=== PATIENT | female | born 1965 | race Caucasian/White ===

== ENCOUNTER 2019-04-18 23:11 | Emergency (ER) | payer OTHER ==
[~2019-04-18] VITALS: Ht 165.1 cm; Wt 187.8 kg
[~2019-04-18 23:11] MED LIST: ABAT250V; ALLO100 PO; AMLO5 PO; ASCO500 PO; ASPI81CH PO; ATEN25 PO; ATEN50 PO; BUME1; BUME2; BUME2 PO; COMBIPATCH TD; DOCU100 PO; FAMO20 PO; FURO40 PO; GABA300 PO; GLIP10 PO; GLIP10ER PO; HYDCHL25 PO; Hair, Skin & N1 EACH PO; INSDET100 SC; Janumet 50-5001 EACH PO; LOSA50 PO; METF500 PO; MIRALAX17 GM PO; Micro-K10 MEQ PO; Naproxen250 MG PO; Neurontin300 MG PO; OLME20 PO; OLME40 PO; ONDA4 PO; OXYACE5T PO; OXYC5; OXYC5 PO; OYSTER SHELL C1 EAC4 PO; PANT20 PO; POTCHL10ER PO; PROBIOTIC1 EAC1; RANI150; RANI150 PO; RXHYDACE PO; Robaxin-750750 MG PO; SIMV10 PO; SITA50T2 PO; SULI150 PO; VITAMIN D-32000 UNIT PO; Zocor20 MG PO
[2019-04-19 00:43] LABS: BASOPHILS ABSOLUTE AUTO 0.04 K/mm3 (0.00-0.23); BASOPHILS PERCENT AUTO 0 % (0-2); EOSINOPHILS ABSOLUTE AUTO 0.35 K/mm3 (0.00-0.68); EOSINOPHILS PERCENT AUTO 3 % (0-6); Hemoglobin 12.5 g/dL (11.5-16.0); IMMATURE GRAN ABSOLUTE AUTO 0.15 K/mm3 (0.00-0.10); IMMATURE GRAN PERCENT AUTO 1 % (0-1); LYMPHOCYTES ABSOLUTE AUTO 3.84 K/mm3 (0.84-5.20); LYMPHOCYTES PERCENT AUTO 27 % (21-46); MONOCYTES ABSOLUTE AUTO 1.03 K/mm3 (0.16-1.47); MONOCYTES PERCENT AUTO 7 % (4-13); Mean Corpuscular HGB Conc 31.3 g/dL (31.5-36.5); Mean Corpuscular Volume 86 fL (80-100); Mean Platelet Volume 11.2 fL (9.1-12.4); NEUTROPHILS ABSOLUTE AUTO 8.76 K/mm3 (1.96-9.15); NEUTROPHILS PERCENT AUTO 62 % (41-73); Platelet Count 263 K/mm3 (150-400); RDW Coefficient Variation 13.6 % (11.7-14.2); RDW Standard Deviation 42.6 fL (35.1-46.3); Red Blood Cell Count 4.63 M/mm3 (3.80-5.20); White Blood Cell Count 14.17 K/mm3 (4.00-11.30)
[2019-04-19 01:00] LABS: Calcium, Ionized (POC) 1.11 mmol/L (1.10-1.46); Chloride (POC) 99 mmol/L (98-108); Creatinine (POC) 1.2 mg/dL (0.6-1.0); Glucose (ISTAT POC) 200 mg/dL (70-99); Hemoglobin (POC) 13.3 g/dL (12.0-16.0); Potassium (POC) 3.9 mmol/L (3.5-5.5); Sodium (POC) 137 mmol/L (135-148); Total CO2 (POC) 31 mmol/L (21-32)
[2019-04-19 01:06] LABS: Albumin, Blood 3.2 g/dL (3.4-5.0); Albumin/Globulin Ratio 0.7 (0.8-1.8); Bilirubin, Total 0.2 mg/dL (0.1-1.0); Bun/Creatinine Ratio 22.7 (12.0-20.0); Calcium, Blood 9.2 mg/dL (8.5-10.1); Creatinine, Blood 1.1 mg/dL (0.40-1.00); Globulin, Blood 4.6 g/dL (2.2-4.0); Total Protein, Blood 7.8 g/dL (6.4-8.2)
== END 2019-04-19 02:30 | disposition home or self-care (01) ==
LOC: ER 23:11
PROVIDERS: Emergency Medicine
DX: R10.32 Left lower quadrant pain (principal); E11.22 Type 2 diabetes mellitus with diabetic chronic kidney disease; I12.9 Hypertensive chronic kidney disease with stage 1 through stage 4 chronic kidney disease, or unspecified chronic kidney disease; N18.9 Chronic kidney disease, unspecified; E66.01 Morbid (severe) obesity due to excess calories; Z88.8 Allergy status to other drugs, medicaments and biological substances; Z79.899 Other long term (current) drug therapy; Z79.82 Long term (current) use of aspirin; Z79.4 Long term (current) use of insulin
CPT/HCPCS: 36415; 74176; 76857; 80047; 80053; 83690; 85014; 85025; 96361; 96374; 96375; 96376; 99284; J1170; J2405; J7030

== ENCOUNTER 2019-10-21 22:36 | Emergency (ER) | payer OTHER ==
[~2019-10-21] VITALS: Ht 162.6 cm; Wt 187.3 kg
[2019-10-22] MEDS ORDERED: BASAGLAR K100 UNIT/3 SC (00:17)
[2019-10-22] MEDS ORDERED: NOVOLOG100 UNIT/2 SC (00:17)
[2019-10-22] MEDS ORDERED: Loratadine10 MG PO (00:18)
[2019-10-22] MEDS ORDERED: PANT20 (00:18)
[2019-10-22] MEDS ORDERED: BUME2 (00:20)
[2019-10-22] MEDS ORDERED: Protonix40 MG PO (01:53)
== END 2019-10-22 02:15 | disposition home or self-care (01) ==
LOC: ER 22:36
DX: K21.9 Gastro-esophageal reflux disease without esophagitis (principal); J39.2 Other diseases of pharynx; Z88.8 Allergy status to other drugs, medicaments and biological substances; Z79.84 Long term (current) use of oral hypoglycemic drugs; Z79.82 Long term (current) use of aspirin; Z79.899 Other long term (current) drug therapy; E11.9 Type 2 diabetes mellitus without complications; I10 Essential (primary) hypertension; N17.9 Acute kidney failure, unspecified
CPT/HCPCS: 99283

== ENCOUNTER 2020-05-12 20:07 | Inpatient (IN) | payer OTHER ==
[~2020-05-12] VITALS: Ht 162.6 cm; Wt 195.0 kg
[~2020-05-12 20:07] MED LIST changes: +ALUMINUM H320 MG/5 M PO; +Allergy Relief10 M1 PO; +BASAGLAR K100 UNIT/3 SC; +BASAGLAR K100 UNIT/4 SC; +Biotin800 MCG PO; +CALC.25 PO; +CENTRUM SILVER1 EAC2 PO; +CIME400 PO; +COMBIPATCH 0.01 EAC1 TD; +COMBIPATCH TOP; +ERGO400 PO; +FISH OIL 1,001000 M1 PO; +FISH OIL 1,2001 EAC1 PO; +Loratadine10 MG PO; +MERIBIN5 MG PO; +NOVOLOG100 UNIT/2 SC; +NOVOLOG100 UNIT/3 SC; +OMEP20ER; +OMEP20ER PO; +PANT20; +POTA10T PO; +Protonix40 MG PO; +TUMS500 MG PO; +Vitamin C100 M1 PO; +ZOCOR20 MG PO
[2020-05-12 21:19] LABS: BASOPHILS ABSOLUTE AUTO 0.04 K/mm3 (0.00-0.23); BASOPHILS PERCENT AUTO 0 % (0-2); EOSINOPHILS ABSOLUTE AUTO 0.02 K/mm3 (0.00-0.68); EOSINOPHILS PERCENT AUTO 0 % (0-6); Hematocrit 42.1 % (33.0-51.0); Hemoglobin 13.1 g/dL (11.5-16.0); IMMATURE GRAN ABSOLUTE AUTO 0.29 K/mm3 (0.00-0.10); IMMATURE GRAN PERCENT AUTO 3 % (0-1); LYMPHOCYTES ABSOLUTE AUTO 1.74 K/mm3 (0.84-5.20); LYMPHOCYTES PERCENT AUTO 18 % (21-46); MONOCYTES ABSOLUTE AUTO 0.87 K/mm3 (0.16-1.47); MONOCYTES PERCENT AUTO 9 % (4-13); Mean Corpuscular HGB 25.4 pg (26.0-34.0); Mean Corpuscular HGB Conc 31.1 g/dL (31.5-36.5); Mean Corpuscular Volume 82 fL (80-100); Mean Platelet Volume 11.2 fL (9.1-12.4); NEUTROPHILS PERCENT AUTO 69 % (41-73); Platelet Count 224 K/mm3 (150-400); RDW Coefficient Variation 14.6 % (11.7-14.2); RDW Standard Deviation 43.7 fL (35.1-46.3); Red Blood Cell Count 5.15 M/mm3 (3.80-5.20); White Blood Cell Count 9.46 K/mm3 (4.00-11.30)
[2020-05-12 21:35] LABS: International Normalized Ratio 1.11; Prothrombin Time Results 11.8 Sec (9.7-11.5)
[2020-05-12 21:36] LABS: Source, Urine Catheter
[2020-05-12 21:38] LABS: Bilirubin, Urine Neg (Neg); Blood, Urine 4+ (Neg); Glucose Qualitative, Urine Neg (Neg); Ketones, Urine 2+ (Neg); Leukocyte Esterase, Urine 1+ (Neg); Nitrite, Urine Neg (Neg); Protein, Urine 3+ (Neg); Specific Gravity, Urine 1.025 (1.003-1.022); Urobilinogen, Urine 1+ (Normal)
[2020-05-12 21:40] LABS: Albumin, Blood 2.6 g/dL (3.4-5.0); Albumin/Globulin Ratio 0.5 (0.8-1.8); Bilirubin, Total 0.6 mg/dL (0.1-1.0); Bun/Creatinine Ratio 12.5 (12.0-20.0); Calcium, Blood 8.9 mg/dL (8.5-10.1); Creatinine, Blood 1.84 mg/dL (0.40-1.00); Globulin, Blood 4.8 g/dL (2.2-4.0); Potassium, Blood 4.4 mmol/L (3.5-5.5); Total Protein, Blood 7.4 g/dL (6.4-8.2)
[2020-05-12 21:44] LABS: Appearance, Urine Hazy (Clear); Color, Urine Yellow (P-Yellow)
[2020-05-12 21:45] LABS: Amorphous Mod (0-Heavy); Bacteria Few /hpf; Hyaline Casts 0-2 /lpf (0-2); Squamous Epithelial Cells Few /hpf (Few); White Blood Cells, Urine 0-2 /hpf (0-5)
[2020-05-12] MEDS ORDERED: CODEINE-GUAIFE120 M1 (21:45)
[2020-05-12] MEDS ORDERED: ESTRADIOL-NORE1 EAC2 PO (21:46)
[2020-05-12 22:00] LABS: Influenza A, PCR Negative (NEGATIVE); Influenza B, PCR Negative (NEGATIVE); Resp Syncytial Virus, PCR Negative (NEGATIVE); SARS-Cov-2 (COVID-19) PCR, MMC Positive (NEGATIVE)
[2020-05-13] MEDS ORDERED: BUME2 PO (02:44)
[2020-05-13] MEDS ORDERED: LOSA50 PO (02:53)
[2020-05-13] MEDS ORDERED: CIME400 PO (02:57)
[2020-05-13 05:27] LABS: Hematocrit 38.7 % (33.0-51.0); Hemoglobin 12.1 g/dL (11.5-16.0); Mean Corpuscular HGB 25.6 pg (26.0-34.0); Mean Corpuscular HGB Conc 31.3 g/dL (31.5-36.5); Mean Corpuscular Volume 82 fL (80-100); Mean Platelet Volume 11.2 fL (9.1-12.4); Platelet Count 192 K/mm3 (150-400); RDW Coefficient Variation 14.4 % (11.7-14.2); RDW Standard Deviation 43.3 fL (35.1-46.3); Red Blood Cell Count 4.72 M/mm3 (3.80-5.20); White Blood Cell Count 8.05 K/mm3 (4.00-11.30)
[2020-05-13 05:43] LABS: Bun/Creatinine Ratio 14.5 (12.0-20.0); Calcium, Blood 8.3 mg/dL (8.5-10.1); Creatinine, Blood 1.79 mg/dL (0.40-1.00); Potassium, Blood 4.6 mmol/L (3.5-5.5)
[2020-05-14 04:57] LABS: Hematocrit 37.9 % (33.0-51.0); Hemoglobin 11.9 g/dL (11.5-16.0); Mean Corpuscular HGB 25.3 pg (26.0-34.0); Mean Corpuscular HGB Conc 31.4 g/dL (31.5-36.5); Mean Corpuscular Volume 81 fL (80-100); Mean Platelet Volume 10.9 fL (9.1-12.4); Platelet Count 225 K/mm3 (150-400); RDW Standard Deviation 41.5 fL (35.1-46.3); White Blood Cell Count 10.19 K/mm3 (4.00-11.30)
[2020-05-14 05:17] LABS: Bun/Creatinine Ratio 25.5 (12.0-20.0); Calcium, Blood 8.7 mg/dL (8.5-10.1); Creatinine, Blood 1.53 mg/dL (0.40-1.00); Potassium, Blood 4.4 mmol/L (3.5-5.5)
[2020-05-14 05:46] LABS: BAND PERCENT MAN 2 % (0-8); BASOPHILS PERCENT MAN 0 % (0-2); EOSINOPHILS PERCENT MAN 1 % (0-6); LYMPHOCYTES ABSOLUTE MAN 1.83 K/mm3 (0.84-5.20); MONOCYTES PERCENT MAN 2 % (4-13); MYELOCYTE PERCENT MAN 1 % (0-0); NEUTROPHILS ABSOLUTE MAN 7.94 K/mm3 (1.96-9.15); SEG NEUTROPHILS PERCENT MAN 76 % (41-73); TOTAL CELLS COUNTED 100
[2020-05-14 05:49] LABS: LYMPHOCYTES PERCENT MAN 18 % (21-46)
[2020-05-15 04:54] LABS: Hematocrit 41.4 % (33.0-51.0); Hemoglobin 13.1 g/dL (11.5-16.0); Mean Corpuscular HGB 25.4 pg (26.0-34.0); Mean Corpuscular HGB Conc 31.6 g/dL (31.5-36.5); Mean Corpuscular Volume 80 fL (80-100); Mean Platelet Volume 10.9 fL (9.1-12.4); Platelet Count 241 K/mm3 (150-400); RDW Coefficient Variation 13.6 % (11.7-14.2); RDW Standard Deviation 39.8 fL (35.1-46.3); Red Blood Cell Count 5.16 M/mm3 (3.80-5.20); White Blood Cell Count 12.92 K/mm3 (4.00-11.30)
[2020-05-15 05:15] LABS: Bun/Creatinine Ratio 32.9 (12.0-20.0); Calcium, Blood 8.3 mg/dL (8.5-10.1); Creatinine, Blood 1.52 mg/dL (0.40-1.00); Potassium, Blood 4.4 mmol/L (3.5-5.5)
[2020-05-15 05:30] LABS: BAND PERCENT MAN 1 % (0-8); BASOPHILS PERCENT MAN 0 % (0-2); EOSINOPHILS PERCENT MAN 0 % (0-6); LYMPHOCYTES PERCENT MAN 14 % (21-46); MONOCYTES PERCENT MAN 7 % (4-13); MYELOCYTE ABSOLUTE MAN 0.12 K/mm3 (0.00-0.00); MYELOCYTE PERCENT MAN 1 % (0-0); NEUTROPHILS ABSOLUTE MAN 10.07 K/mm3 (1.96-9.15); SEG NEUTROPHILS PERCENT MAN 77 % (41-73); TOTAL CELLS COUNTED 100
[2020-05-17 07:04] LABS: Bun/Creatinine Ratio 36.1 (12.0-20.0); Calcium, Blood 8.8 mg/dL (8.5-10.1); Creatinine, Blood 1.33 mg/dL (0.40-1.00); Potassium, Blood 4.3 mmol/L (3.5-5.5)
[2020-05-18] MEDS ORDERED: GUAI600T33 PO (11:40)
[2020-05-18] MEDS ORDERED: DECADRON6 M1 PO (11:40)
[2020-05-18] MEDS ORDERED: ANTIFUNGAL POWD71 GM TOP (11:41)
== END 2020-05-18 14:50 | disposition home or self-care (01) | DRG 177 ==
LOC: ER 20:07 → MEDS 23:37 → ER 05-13 02:06 → MEDS 05-13 02:20
PROVIDERS: Internal Medicine; Physician Assistant; ADMIT Internal Medicine
PROC: XW033E5 Introduction of Remdesivir Anti-infective into Peripheral Vein, Percutaneous Approach, New Technology Group 5 (ICD-10-PCS; principal; 2020-05-13)
PROC: 3E0333Z Introduction of Anti-inflammatory into Peripheral Vein, Percutaneous Approach (ICD-10-PCS; 2020-05-13)
DX: U07.1 COVID-19 (principal); J96.01 Acute respiratory failure with hypoxia; J12.82 Pneumonia due to coronavirus disease 2019; N17.9 Acute kidney failure, unspecified; Z68.45 Body mass index [BMI] 70 or greater, adult; E11.65 Type 2 diabetes mellitus with hyperglycemia; E66.01 Morbid (severe) obesity due to excess calories; E78.5 Hyperlipidemia, unspecified; I12.9 Hypertensive chronic kidney disease with stage 1 through stage 4 chronic kidney disease, or unspecified chronic kidney disease; E11.22 Type 2 diabetes mellitus with diabetic chronic kidney disease; N18.30 Chronic kidney disease, stage 3 unspecified
CPT/HCPCS: 0241U; 36415; 71045; 80048; 80053; 81001; 82947; 83605; 84145; 85025; 85027; 85610; 85730; 87040; 87086; 93005; 93010; 96365; 96375; 99285-25; A9270; A9270-GY; J1100; J7120

== ENCOUNTER 2020-08-01 14:00 | Inpatient (IN) | payer OTHER ==
[~2020-08-01] VITALS: Ht 162.6 cm; Wt 194.6 kg
[~2020-08-01 14:00] MED LIST changes: +ANTIFUNGAL POWD71 GM TOP; -Allergy Relief10 M1 PO; -BASAGLAR K100 UNIT/4 SC; +CODEINE-GUAIFE120 M1; +DECADRON6 M1 PO; -ERGO400 PO; +GUAI600T33 PO; -NOVOLOG100 UNIT/3 SC; -OMEP20ER PO; -ZOCOR20 MG PO
[2020-08-01 16:25] LABS: BASOPHILS ABSOLUTE AUTO 0.07 K/mm3 (0.00-0.23); BASOPHILS PERCENT AUTO 1 % (0-2); EOSINOPHILS ABSOLUTE AUTO 0.38 K/mm3 (0.00-0.68); EOSINOPHILS PERCENT AUTO 3 % (0-6); Hematocrit 39.4 % (33.0-51.0); Hemoglobin 12.5 g/dL (11.5-16.0); IMMATURE GRAN ABSOLUTE AUTO 0.42 K/mm3 (0.00-0.10); IMMATURE GRAN PERCENT AUTO 4 % (0-1); LYMPHOCYTES ABSOLUTE AUTO 3.01 K/mm3 (0.84-5.20); LYMPHOCYTES PERCENT AUTO 26 % (21-46); MONOCYTES ABSOLUTE AUTO 0.84 K/mm3 (0.16-1.47); MONOCYTES PERCENT AUTO 7 % (4-13); Mean Corpuscular HGB 26.7 pg (26.0-34.0); Mean Corpuscular HGB Conc 31.7 g/dL (31.5-36.5); Mean Corpuscular Volume 84 fL (80-100); Mean Platelet Volume 10.5 fL (9.1-12.4); NEUTROPHILS ABSOLUTE AUTO 6.68 K/mm3 (1.96-9.15); NEUTROPHILS PERCENT AUTO 59 % (41-73); Platelet Count 306 K/mm3 (150-400); RDW Coefficient Variation 15.4 % (11.7-14.2); RDW Standard Deviation 46.5 fL (35.1-46.3); Red Blood Cell Count 4.69 M/mm3 (3.80-5.20)
[2020-08-01 16:43] LABS: Albumin, Blood 3.1 g/dL (3.4-5.0); Albumin/Globulin Ratio 0.6 (0.8-1.8); Bilirubin, Total 0.3 mg/dL (0.1-1.0); Bun/Creatinine Ratio 20.3 (12.0-20.0); Calcium, Blood 9.4 mg/dL (8.5-10.1); Creatinine, Blood 1.53 mg/dL (0.40-1.00); Globulin, Blood 4.9 g/dL (2.2-4.0); Potassium, Blood 4.3 mmol/L (3.5-5.5)
[2020-08-01] MEDS ORDERED: CIME400 PO (17:58)
[2020-08-01] MEDS ORDERED: SULFAMETHOXAZO1 EAC1 PO (17:58)
[2020-08-01] MEDS ORDERED: OMEP20ER PO (17:59)
[2020-08-01] MEDS ORDERED: BASAGLAR K100 UNIT/8 SC (18:00)
[2020-08-01] MEDS ORDERED: ESTRADIOL-NORE1 EAC2 PO (18:00)
[2020-08-01] MEDS ORDERED: CALC.25 PO (18:00)
[2020-08-01] MEDS ORDERED: POTA10T PO (18:01)
[2020-08-01] MEDS ORDERED: LOSA50 PO (18:01)
[2020-08-01] MEDS ORDERED: BUME2 PO (18:02)
[2020-08-01] MEDS ORDERED: NOVOLOG100 UNIT/3 SC (18:02)
[2020-08-01] MEDS ORDERED: ALLO100 PO (18:02)
[2020-08-01] MEDS ORDERED: ZOCOR20 MG PO (18:03)
[2020-08-01] MEDS ORDERED: METF500C PO (18:03)
[2020-08-01] MEDS ORDERED: Allergy Relief10 M1 PO (18:20)
[2020-08-01] MEDS ORDERED: Vitamin D2000 UNIT PO (18:20)
[2020-08-01] MEDS ORDERED: Aspir 8181 MG PO (18:20)
[2020-08-01] MEDS ORDERED: FLUC150A PO (18:21)
[2020-08-01] MEDS ORDERED: BUME1 PO (18:23)
[2020-08-01 18:37] LABS: Source, Urine Clean Catch
[2020-08-01 18:40] LABS: Appearance, Urine Clear (Clear); Bilirubin, Urine Neg (Neg); Blood, Urine Neg (Neg); Color, Urine Yellow (P-Yellow); Glucose Qualitative, Urine Neg (Neg); Ketones, Urine Neg (Neg); Leukocyte Esterase, Urine Neg (Neg); Nitrite, Urine Neg (Neg); Protein, Urine 2+ (Neg); Urobilinogen, Urine NORM (Normal)
[2020-08-01 18:59] LABS: Squamous Epithelial Cells Mod /hpf (Few)
[2020-08-01 19:00] LABS: Amorphous Mod (0-Heavy); Bacteria Few /hpf; Mucus Light (0-Heavy); Red Blood Cells, Urine 0-2 /hpf (0-2); White Blood Cells, Urine 0-2 /hpf (0-5)
--- NOTE | 2020-08-01 22:03 | NUR ---
YVROSE WAS ADMITTED TO THE FLOOR FOR CELLULTITIS OF THE LEFT LOWER EXTREMITY. ARRIVED TO THE ROOM VIA GURNEY, TRANSFERRED INDEPENDENTLY TO BED. AOX3, PLEASANT AND COOPERATIVE. AT BEDSIDE. REPORTS PAIN AT 6/10 IN LLE. LLE WITH OUTLINED REDNESS BRIGHT RED, SLIGHTLY WARM TO THE TOUCH. FROM KNEE DOWN TO FEET, LEG IS SWOLLEN, DECREASED PULSE ON THE LEFT SIDE DUE TO EDEMA. LLE NO EDEMA. STATES WAS TAKING HOME ANTIBOTICS BUT WAS NOT WORKING. LUNG SOUNDS HR SINUS. DENIES ANY URINARY OR BOWEL ISSUES. PICTURES IN CHART. IVF INFUSING, STARTED VANCO. MEDICATED FOR PAIN AND ADMINISTERED PM MEDS. CALL LIGHT IS IN REACH, WILL CONTINUE TO MONITOR.
[2020-08-02 05:18] LABS: BASOPHILS ABSOLUTE AUTO 0.06 K/mm3 (0.00-0.23); BASOPHILS PERCENT AUTO 1 % (0-2); EOSINOPHILS ABSOLUTE AUTO 0.43 K/mm3 (0.00-0.68); EOSINOPHILS PERCENT AUTO 4 % (0-6); Hematocrit 36.5 % (33.0-51.0); Hemoglobin 11.4 g/dL (11.5-16.0); IMMATURE GRAN ABSOLUTE AUTO 0.36 K/mm3 (0.00-0.10); IMMATURE GRAN PERCENT AUTO 3 % (0-1); LYMPHOCYTES ABSOLUTE AUTO 3.52 K/mm3 (0.84-5.20); LYMPHOCYTES PERCENT AUTO 33 % (21-46); MONOCYTES ABSOLUTE AUTO 0.71 K/mm3 (0.16-1.47); MONOCYTES PERCENT AUTO 7 % (4-13); Mean Corpuscular HGB 26.8 pg (26.0-34.0); Mean Corpuscular HGB Conc 31.2 g/dL (31.5-36.5); Mean Corpuscular Volume 86 fL (80-100); Mean Platelet Volume 10.6 fL (9.1-12.4); NEUTROPHILS ABSOLUTE AUTO 5.67 K/mm3 (1.96-9.15); NEUTROPHILS PERCENT AUTO 53 % (41-73); Platelet Count 299 K/mm3 (150-400); RDW Coefficient Variation 15.4 % (11.7-14.2); RDW Standard Deviation 48.1 fL (35.1-46.3); Red Blood Cell Count 4.26 M/mm3 (3.80-5.20); White Blood Cell Count 10.75 K/mm3 (4.00-11.30)
--- NOTE | 2020-08-02 05:28 | NUR ---
SHIFT SUMMARY: AOX3, INDEPENDENT TO 1 ASSIST IN ROOM. HAS STAYED WITH HER ALL NIGHT AND HAS ASSISTED. LLE HAS OUTLINED REDNESS FROM JUST BELOW THE KNEE TO THE FOOT, 3+ SWELLING, SLIGHTLY WARM TO THE TOUCH. REDNESS HAS DECREASED FROM POINT OF ER TO THIS AM NOTED BY OUTLINE. MEDICATED FOR PAIN X1 PRIOR TO BEDTIME. 1.8 LITERS GIVEN PER ORDERS. IV SL. GOOD APPETITE, CLEAR LUNGS, HR SINUS. ENCOURAGED ELEVATION OF LEG. PLAN: IV ANTIBOTICS, SYMPTOMS MANAGMENT. CALLS APPROPRIATLY, CALL LIGHT IN REACH.
[2020-08-02 05:41] LABS: Bun/Creatinine Ratio 22.3 (12.0-20.0); Calcium, Blood 8.7 mg/dL (8.5-10.1); Creatinine, Blood 1.48 mg/dL (0.40-1.00); Potassium, Blood 4.6 mmol/L (3.5-5.5)
--- NOTE | 2020-08-02 08:00 | NUR ---
PT LAYING IN BED WATCHING TV, A/0X3, PLEASANT AND COOPERATIVE WITH CARE, FOLLOWS COMMANDS WELL, DENIES COMPLAINTS OF PAIN, LUNGS ARE CLEAR T/O, RESP EVEN AND UNLABORED ON R/A, NO COUGH NOTED, HRR, IV SITE TO RIGHT UPPER ARM, SITE CLEAR AND PATENT, BTX4, ABD FLAT SOFT NONTENDER, VOIDS WITHOUT DIFF, SKIN HAS CELLULITIS TO LEFT LOWER EXT, IS MARKED AND REDNESS IS SHRINKING, EDEMA NOTED TO THIS EXT, SHE REPORTS THE PAIN IS OK WHEN IN BED BUT WHEN SHE PUTS WEIGHT ON IT IT HURTS MORE, EDI GALLAGHER, CALL LIGHT IN REACH.
--- NOTE | 2020-08-02 12:14 | NUR ---
IV INFILTRATED, CHARGE NURSE FROM PCU PLACED A LONG IV WITH U/S GUIDED, FLUSHES WELL. CALL LIGHT IN REACH.
--- NOTE | 2020-08-02 17:21 | NUR ---
BP 198/116 HR 101 PATIENT [address]IVE[address] BASS NOTIFIED AND ORDERS RECEIVED FOR METOPROLOL TARTRATE AND APRESOLINE. EMAR UPDATED
--- NOTE | 2020-08-02 18:40 | NUR ---
Shift Summary Assumed care at approx. 1245. A/O, independent. Flu shot given. Calls appropriately for needs. at bedside during visiting hours. Patient had hypertension. PRN meds ordered. Also notified Dr. Garcia of home med Losartan not on EMAR. Received T.O. to resume home med Losartan starting tomorrow. No other concerns, WCTM and report to oncoming RN.
--- NOTE | 2020-08-03 04:15 | NUR ---
SHIFT SUMMARY A/O, ABLE TO MAKE NEEDS KNOWN. COOPERATIVE WITH CARE. CALLS AND ANSWERS QUESTIONS APPROPRIATELY. NO C/O PAIN/DISCOMFORT. DECIDED BY NURSING ORANGE PICKER OK FOR TO STAY THE NIGHT FOR CAREGIVING PURPOSES. CONTINUES WITH IV ABX. RA TO LLE APPEARS TO BE RECEEDING. APPEARED TO REST T/O THE NIGHT. NOTED HYPERTENSION, BUT APPEARS ON TREND WITH PREVIOUS PRESSURES. NO OTHER ACUTE CHANGES NOTED OVERNIGHT. BED REMAINS IN LOWEST POSITION. CALL LIGHT AND BELONGINGS WITHIN REACH. CONTINUE WITH CURRENT PLAN OF CARE. REPORT TO ONCOMING RN.
[2020-08-03] MEDS ORDERED: VISBIOME 112.51 EACH PO (11:28)
[2020-08-03] MEDS ORDERED: Diflucan150 MG PO ×2 (11:29→12:58)
[2020-08-03] MEDS ORDERED: CEPH500 PO (11:29)
--- NOTE | 2020-08-03 13:29 | NUR ---
DISCHARGE SUMMARY PT WHEELED DOWN TO FREEDOM ENTRANCE BY SECURITY @ 2309. IS WAITING FOR PT WITH THEIR PERSONAL CAR. WAS AT BEDSIDE WHEN DISCHARGE INSTRUCTIONS WERE REVIEWED. ALL THEIR QUESTIONS WERE ANSWERED. IV WAS REMOVED, SITE APPEARED WNL. PT STATED SHE HAD ALL OF HER BELONGINGS. NEEDED RX FAXED TO PHARMACY OF PT CHOICE. PT INSTRUCTED TO CALL FOR FOLLOW UP APPOINTMENTS.
[2020-11-24] MEDS ORDERED: Norco 5-325 Ta1 EACH PO (12:06)
== END 2020-08-03 13:28 | disposition home or self-care (01) | DRG 872 ==
LOC: ER 14:00 → ERHOLD 18:14 → MEDS 19:55
PROVIDERS: Nurse Practitioner Acute Care; Physician Assistant; ADMIT Hospitalist
DX: A41.9 Sepsis, unspecified organism (principal); L03.116 Cellulitis of left lower limb; N17.9 Acute kidney failure, unspecified; Z68.45 Body mass index [BMI] 70 or greater, adult; E78.5 Hyperlipidemia, unspecified; E66.01 Morbid (severe) obesity due to excess calories; I12.9 Hypertensive chronic kidney disease with stage 1 through stage 4 chronic kidney disease, or unspecified chronic kidney disease; N18.30 Chronic kidney disease, stage 3 unspecified; E11.22 Type 2 diabetes mellitus with diabetic chronic kidney disease; G47.33 Obstructive sleep apnea (adult) (pediatric); Z23 Encounter for immunization; Z88.6 Allergy status to analgesic agent; Z88.8 Allergy status to other drugs, medicaments and biological substances; Z79.4 Long term (current) use of insulin; Z79.82 Long term (current) use of aspirin; Z79.899 Other long term (current) drug therapy
CPT/HCPCS: 36415; 80048; 80053; 81001; 82947; 83605; 85025; 87040; 87086; 93005; 93010; 93971; 96374; 99285-25; A9270; J0692; J1644; J3370; J7030; J7050; Q2038

== ENCOUNTER 2021-03-06 14:43 | Emergency (ER) | payer OTHER ==
[~2021-03-06] VITALS: Ht 162.6 cm; Wt 189.2 kg
[~2021-03-06 14:43] MED LIST changes: +Allergy Relief10 M1 PO; +Aspir 8181 MG PO; +BASAGLAR K100 UNIT/8 SC; +BUME1 PO; +CEPH500 PO; +Diflucan150 MG PO; +ESTRADIOL-NORE1 EAC2 PO; +FLUC150A PO; +METF500C PO; +NOVOLOG100 UNIT/3 SC; +Norco 5-325 Ta1 EACH PO; +OMEP20ER PO; +SULFAMETHOXAZO1 EAC1 PO; +VISBIOME 112.51 EACH PO; +Vitamin D2000 UNIT PO; +ZOCOR20 MG PO
[2021-03-06] MEDS ORDERED: INSULANPEN SC (15:28)
[2021-03-06] MEDS ORDERED: FAMO20 PO (15:35)
[2021-03-06] MEDS ORDERED: MERIBIN5 MG PO (15:41)
[2021-03-06] MEDS ORDERED: MULVITA PO (15:42)
[2021-03-06] MEDS ORDERED: Calcium + Vita1 EACH PO (15:44)
[2021-03-06] MEDS ORDERED: FISH OIL-VIT D1 EACH PO (15:46)
[2021-03-06] MEDS ORDERED: FISH OIL PO (15:48)
[2021-03-06] MEDS ORDERED: Tessalon200 MG (15:52)
[2021-03-06] MEDS ORDERED: METO5 (15:53)
[2021-03-06] MEDS ORDERED: BUME2 PO (16:08)
[2021-03-06 16:47] LABS: BASOPHILS PERCENT AUTO 1 % (0-2); EOSINOPHILS ABSOLUTE AUTO 0.36 K/mm3 (0.00-0.68); EOSINOPHILS PERCENT AUTO 2 % (0-6); Hematocrit 39.5 % (33.0-51.0); Hemoglobin 12.8 g/dL (11.5-16.0); IMMATURE GRAN ABSOLUTE AUTO 0.56 K/mm3 (0.00-0.10); IMMATURE GRAN PERCENT AUTO 4 % (0-1); LYMPHOCYTES ABSOLUTE AUTO 3.63 K/mm3 (0.84-5.20); LYMPHOCYTES PERCENT AUTO 24 % (21-46); MONOCYTES PERCENT AUTO 7 % (4-13); Mean Corpuscular HGB 26.9 pg (26.0-34.0); Mean Corpuscular HGB Conc 32.4 g/dL (31.5-36.5); Mean Corpuscular Volume 83 fL (80-100); Mean Platelet Volume 11.6 fL (9.1-12.4); NEUTROPHILS ABSOLUTE AUTO 9.49 K/mm3 (1.96-9.15); NEUTROPHILS PERCENT AUTO 62 % (41-73); Platelet Count 287 K/mm3 (150-400); RDW Coefficient Variation 14.9 % (11.7-14.2); RDW Standard Deviation 44.8 fL (35.1-46.3); Red Blood Cell Count 4.76 M/mm3 (3.80-5.20); White Blood Cell Count 15.24 K/mm3 (4.00-11.30)
[2021-03-06 17:07] LABS: Alanine Aminotransfer (ALT/SGP 39 U/L (12-78); Albumin/Globulin Ratio 0.7 (0.8-1.8); Alk Phos 82 U/L (50-136); Anion Gap 7 mmol/L (6-16); Aspartate Aminotrans (AST/SGOT 24 U/L (12-37); Bilirubin, Total 0.3 mg/dL (0.1-1.0); Blood Urea Nitrogen 67 mg/dL (8-24); Bun/Creatinine Ratio 31.6 (12.0-20.0); CO2, Blood 32 mmol/L (21-32); Calcium, Blood 9.8 mg/dL (8.5-10.1); Chloride, Blood 97 mmol/L (98-108); Creatinine, Blood 2.12 mg/dL (0.40-1.00); Globulin, Blood 4.4 g/dL (2.2-4.0); Glomerular Filtration Rate 24 (60-); Glucose, Blood 179 mg/dL (70-99); Potassium, Blood 2.9 mmol/L (3.5-5.5); Sodium, Blood 136 mmol/L (136-145); Total Protein, Blood 7.4 g/dL (6.4-8.2); Troponin I <0.015 ng/mL (0.000-0.040)
[2021-03-06] MEDS ORDERED: Norco 5-325 Ta1 EACH PO (18:22)
[2021-03-06] MEDS ORDERED: AZIT250 PO (18:22)
== END 2021-03-06 18:51 | disposition home or self-care (01) ==
LOC: ER 14:43
PROVIDERS: Physician Assistant
DX: J18.9 Pneumonia, unspecified organism (principal); M72.2 Plantar fascial fibromatosis; E11.9 Type 2 diabetes mellitus without complications; I10 Essential (primary) hypertension; E78.5 Hyperlipidemia, unspecified; K21.9 Gastro-esophageal reflux disease without esophagitis; G47.33 Obstructive sleep apnea (adult) (pediatric); Z88.8 Allergy status to other drugs, medicaments and biological substances; Z79.4 Long term (current) use of insulin; Z79.899 Other long term (current) drug therapy; Z79.84 Long term (current) use of oral hypoglycemic drugs; Z79.82 Long term (current) use of aspirin
CPT/HCPCS: 36415; 71046; 73700; 80053; 83690; 83880; 84484; 85025; 93005; 93010; 99285-25

== ENCOUNTER 2021-03-14 05:14 | Emergency (ER) | payer OTHER ==
[~2021-03-14] VITALS: Ht 162.6 cm; Wt 189.2 kg
[~2021-03-14 05:14] MED LIST changes: +AZIT250 PO; +Calcium + Vita1 EACH PO; +FISH OIL PO; +FISH OIL-VIT D1 EACH PO; +INSULANPEN SC; +METO5; +MULVITA PO; +Tessalon200 MG
[2021-03-14 07:19] LABS: BASOPHILS ABSOLUTE AUTO 0.07 K/mm3 (0.00-0.23); BASOPHILS PERCENT AUTO 1 % (0-2); EOSINOPHILS ABSOLUTE AUTO 0.58 K/mm3 (0.00-0.68); EOSINOPHILS PERCENT AUTO 4 % (0-6); Hematocrit 37.8 % (33.0-51.0); Hemoglobin 11.9 g/dL (11.5-16.0); IMMATURE GRAN ABSOLUTE AUTO 0.29 K/mm3 (0.00-0.10); IMMATURE GRAN PERCENT AUTO 2 % (0-1); LYMPHOCYTES ABSOLUTE AUTO 3.75 K/mm3 (0.84-5.20); LYMPHOCYTES PERCENT AUTO 26 % (21-46); MONOCYTES ABSOLUTE AUTO 1.03 K/mm3 (0.16-1.47); MONOCYTES PERCENT AUTO 7 % (4-13); Mean Corpuscular HGB 26.7 pg (26.0-34.0); Mean Corpuscular HGB Conc 31.5 g/dL (31.5-36.5); Mean Corpuscular Volume 85 fL (80-100); Mean Platelet Volume 11.4 fL (9.1-12.4); NEUTROPHILS ABSOLUTE AUTO 8.71 K/mm3 (1.96-9.15); NEUTROPHILS PERCENT AUTO 60 % (41-73); Platelet Count 224 K/mm3 (150-400); RDW Coefficient Variation 15.5 % (11.7-14.2); RDW Standard Deviation 47.6 fL (35.1-46.3); Red Blood Cell Count 4.45 M/mm3 (3.80-5.20); White Blood Cell Count 14.43 K/mm3 (4.00-11.30)
[2021-03-14 07:37] LABS: Alanine Aminotransfer (ALT/SGP 39 U/L (12-78); Albumin, Blood 2.9 g/dL (3.4-5.0); Albumin/Globulin Ratio 0.7 (0.8-1.8); Alk Phos 72 U/L (50-136); Anion Gap 4 mmol/L (6-16); Aspartate Aminotrans (AST/SGOT 17 U/L (12-37); Bilirubin, Total 0.4 mg/dL (0.1-1.0); Blood Urea Nitrogen 31 mg/dL (8-24); Bun/Creatinine Ratio 18.6 (12.0-20.0); CO2, Blood 30 mmol/L (21-32); Calcium, Blood 8.9 mg/dL (8.5-10.1); Chloride, Blood 103 mmol/L (98-108); Creatinine, Blood 1.67 mg/dL (0.40-1.00); Globulin, Blood 4.3 g/dL (2.2-4.0); Glomerular Filtration Rate 32 (60-); Glucose, Blood 179 mg/dL (70-99); Sodium, Blood 137 mmol/L (136-145); Total Protein, Blood 7.2 g/dL (6.4-8.2); Troponin I <0.015 ng/mL (0.000-0.040)
[2021-03-14] MEDS ORDERED: CLIN300 PO (08:21)
== END 2021-03-14 09:25 | disposition home or self-care (01) ==
LOC: ER 05:14
PROVIDERS: Student in an Organized Health Care Education/Training Program
DX: L03.115 Cellulitis of right lower limb (principal); R60.0 Localized edema; E11.9 Type 2 diabetes mellitus without complications; I10 Essential (primary) hypertension; E78.5 Hyperlipidemia, unspecified; N17.9 Acute kidney failure, unspecified; K21.9 Gastro-esophageal reflux disease without esophagitis; G47.33 Obstructive sleep apnea (adult) (pediatric); Z88.8 Allergy status to other drugs, medicaments and biological substances; Z79.899 Other long term (current) drug therapy; Z79.4 Long term (current) use of insulin; Z79.82 Long term (current) use of aspirin
CPT/HCPCS: 71046; 80053; 83880; 84484; 85025; 93005; 93010; 96374; 99284-25; J1940

== ENCOUNTER 2021-04-23 11:07 | Emergency (ER) | payer OTHER ==
[~2021-04-23] VITALS: Ht 162.6 cm; Wt 187.3 kg
[~2021-04-23 11:07] MED LIST changes: +CLIN300 PO
[2021-04-23 11:56] LABS: BASOPHILS ABSOLUTE AUTO 0.09 K/mm3 (0.00-0.23); BASOPHILS PERCENT AUTO 1 % (0-2); EOSINOPHILS ABSOLUTE AUTO 0.35 K/mm3 (0.00-0.68); EOSINOPHILS PERCENT AUTO 2 % (0-6); Hematocrit 39.7 % (33.0-51.0); Hemoglobin 12.9 g/dL (11.5-16.0); IMMATURE GRAN ABSOLUTE AUTO 0.39 K/mm3 (0.00-0.10); IMMATURE GRAN PERCENT AUTO 3 % (0-1); LYMPHOCYTES ABSOLUTE AUTO 3.83 K/mm3 (0.84-5.20); LYMPHOCYTES PERCENT AUTO 27 % (21-46); MONOCYTES ABSOLUTE AUTO 0.99 K/mm3 (0.16-1.47); MONOCYTES PERCENT AUTO 7 % (4-13); Mean Corpuscular HGB Conc 32.5 g/dL (31.5-36.5); Mean Corpuscular Volume 83 fL (80-100); Mean Platelet Volume 11.3 fL (9.1-12.4); NEUTROPHILS PERCENT AUTO 61 % (41-73); Platelet Count 281 K/mm3 (150-400); RDW Coefficient Variation 15.4 % (11.7-14.2); RDW Standard Deviation 46.9 fL (35.1-46.3); Red Blood Cell Count 4.77 M/mm3 (3.80-5.20); White Blood Cell Count 14.35 K/mm3 (4.00-11.30)
[2021-04-23 12:21] LABS: Alanine Aminotransfer (ALT/SGP 38 U/L (12-78); Albumin, Blood 3.1 g/dL (3.4-5.0); Albumin/Globulin Ratio 0.8 (0.8-1.8); Alk Phos 75 U/L (50-136); Anion Gap 13 mmol/L (6-16); Aspartate Aminotrans (AST/SGOT 18 U/L (12-37); Bilirubin, Total 0.6 mg/dL (0.1-1.0); Blood Urea Nitrogen 56 mg/dL (8-24); Bun/Creatinine Ratio 31.1 (12.0-20.0); CO2, Blood 31 mmol/L (21-32); Calcium, Blood 9.5 mg/dL (8.5-10.1); Chloride, Blood 95 mmol/L (98-108); Globulin, Blood 3.8 g/dL (2.2-4.0); Glomerular Filtration Rate 29 (60-); Glucose, Blood 199 mg/dL (70-99); Potassium, Blood 3.4 mmol/L (3.5-5.5); Sodium, Blood 139 mmol/L (136-145); Total Protein, Blood 6.9 g/dL (6.4-8.2); Troponin I <0.015 ng/mL (0.000-0.040)
[2021-04-23] MEDS ORDERED: Monodox100 MG PO (15:22)
== END 2021-04-23 15:49 | disposition home or self-care (01) ==
LOC: ER 11:07
PROVIDERS: Physician Assistant
DX: J18.9 Pneumonia, unspecified organism (principal); D72.829 Elevated white blood cell count, unspecified; Z88.8 Allergy status to other drugs, medicaments and biological substances; Z79.899 Other long term (current) drug therapy; Z79.4 Long term (current) use of insulin; Z79.84 Long term (current) use of oral hypoglycemic drugs; Z79.82 Long term (current) use of aspirin; E11.9 Type 2 diabetes mellitus without complications; I10 Essential (primary) hypertension; E78.5 Hyperlipidemia, unspecified; K21.9 Gastro-esophageal reflux disease without esophagitis; G47.33 Obstructive sleep apnea (adult) (pediatric)
CPT/HCPCS: 36415; 71046; 80053; 83690; 83880; 84484; 85025; 93005; 93010; 99283-25

== ENCOUNTER 2021-05-27 08:21 | Day surgery (SDC) | payer OTHER ==
[~2021-05-27] VITALS: Ht 162.6 cm; Wt 193.2 kg
[~2021-05-27 08:21] MED LIST changes: +Monodox100 MG PO
[2021-05-27] MEDS ORDERED: POTA10T (08:53)
[2021-05-27] MEDS ORDERED: KERENDIA10 MG (08:54)
--- NOTE | 2021-05-27 09:07 | NUR ---
05/27/21 0907 Susu Moreno TETRACAINE DROP IN LEFT EYE AT 0902,PLEDGET IN LEFT EYE AT 0905 BY [facility].G
== END 2021-05-27 11:34 | disposition home or self-care (01) ==
LOC: ORSCSDS 08:21
PROVIDERS: Ophthalmology
PROC: 08RK3JZ Replacement of Left Lens with Synthetic Substitute, Percutaneous Approach (ICD-10-PCS; principal; 2021-05-27 09:30)
DX: H25.12 Age-related nuclear cataract, left eye (principal); I10 Essential (primary) hypertension; E11.9 Type 2 diabetes mellitus without complications; Z79.84 Long term (current) use of oral hypoglycemic drugs; Z79.899 Other long term (current) drug therapy
CPT/HCPCS: 82947; A9270; J2001; J2250; J3010; J3301; J7040; V2632

== ENCOUNTER 2021-07-29 15:00 | Emergency (ER) | payer OTHER ==
[~2021-07-29] VITALS: Ht 162.6 cm; Wt 190.5 kg
[~2021-07-29 15:00] MED LIST changes: +KERENDIA10 MG; +POTA10T
[2021-07-29 15:29] LABS: Source, Urine Clean Catch
[2021-07-29 15:41] LABS: Appearance, Urine Clear (Clear); Bilirubin, Urine Neg (Neg); Blood, Urine 2+ (Neg); Color, Urine Yellow (P-Yellow); Glucose Qualitative, Urine Neg (Neg); Ketones, Urine Neg (Neg); Leukocyte Esterase, Urine 1+ (Neg); Nitrite, Urine Neg (Neg); Protein, Urine Neg (Neg); Urobilinogen, Urine NORM (Normal)
[2021-07-29 16:02] LABS: Bacteria Few /hpf; Red Blood Cells, Urine 25-50 /hpf (0-2); Squamous Epithelial Cells Few /hpf (Few)
[2021-07-29] MEDS ORDERED: Macrobid 100 M100 MG PO (16:20)
== END 2021-07-29 16:30 | disposition home or self-care (01) ==
LOC: ER 15:00
PROVIDERS: Physician Assistant
DX: N39.0 Urinary tract infection, site not specified (principal); R05.9 Cough, unspecified; E11.9 Type 2 diabetes mellitus without complications; I10 Essential (primary) hypertension; E78.5 Hyperlipidemia, unspecified; K21.9 Gastro-esophageal reflux disease without esophagitis; G47.33 Obstructive sleep apnea (adult) (pediatric); Z88.8 Allergy status to other drugs, medicaments and biological substances; Z79.899 Other long term (current) drug therapy; Z79.4 Long term (current) use of insulin; Z79.84 Long term (current) use of oral hypoglycemic drugs; Z79.82 Long term (current) use of aspirin
CPT/HCPCS: 71046; 81001; 87077; 87086; 87186; 99283-25

== ENCOUNTER → 2023-01-10 | Outpatient (CLI) | payer OTHER ==
[~2023-01-10] MED LIST changes: +Macrobid 100 M100 MG PO
== END | disposition home or self-care (01) ==
LOC: LAB SHORT 15:59 → LAB 15:59
DX: N39.0 Urinary tract infection, site not specified (principal)
CPT/HCPCS: 87077; 87086; 87186

== ENCOUNTER 2023-03-25 10:20 | Emergency (ER) | payer OTHER ==
[~2023-03-25] VITALS: Ht 162.6 cm; Wt 179.2 kg
[2023-03-25 11:08] LABS: BASOPHILS ABSOLUTE AUTO 0.07 K/mm3 (0.00-0.23); BASOPHILS PERCENT AUTO 1 % (0-2); EOSINOPHILS ABSOLUTE AUTO 0.51 K/mm3 (0.00-0.68); EOSINOPHILS PERCENT AUTO 4 % (0-6); Hematocrit 38.3 % (33.0-51.0); Hemoglobin 12.1 g/dL (11.5-16.0); IMMATURE GRAN ABSOLUTE AUTO 0.61 K/mm3 (0.00-0.10); IMMATURE GRAN PERCENT AUTO 4 % (0-1); LYMPHOCYTES ABSOLUTE AUTO 3.32 K/mm3 (0.84-5.20); LYMPHOCYTES PERCENT AUTO 23 % (21-46); MONOCYTES ABSOLUTE AUTO 0.95 K/mm3 (0.16-1.47); MONOCYTES PERCENT AUTO 7 % (4-13); Mean Corpuscular HGB Conc 31.6 g/dL (31.5-36.5); Mean Corpuscular Volume 86 fL (80-100); Mean Platelet Volume 10.3 fL (9.1-12.4); NEUTROPHILS PERCENT AUTO 63 % (41-73); Platelet Count 329 K/mm3 (150-400); RDW Coefficient Variation 13.5 % (11.7-14.2); RDW Standard Deviation 42.5 fL (35.1-46.3); Red Blood Cell Count 4.48 M/mm3 (3.80-5.20); White Blood Cell Count 14.56 K/mm3 (4.00-11.30)
[2023-03-25 11:31] LABS: Albumin, Blood 3.3 g/dL (3.4-5.0); Albumin/Globulin Ratio 0.7 (0.8-1.8); Bilirubin, Total 0.3 mg/dL (0.1-1.0); Bun/Creatinine Ratio 22.8 (12.0-20.0); Calcium, Blood 9.5 mg/dL (8.5-10.1); Creatinine, Blood 1.71 mg/dL (0.40-1.00); Globulin, Blood 4.9 g/dL (2.2-4.0); Magnesium, Blood 1.8 mg/dL (1.6-2.4); Potassium, Blood 4.1 mmol/L (3.5-5.5); Total Protein, Blood 8.2 g/dL (6.4-8.2)
[2023-03-25] MEDS ORDERED: OXYCODONE-ACET1 EAC3 PO (12:36)
[2023-03-25] MEDS ORDERED: DULOXETINE HCL60 M1 PO (12:36)
[2023-03-25] MEDS ORDERED: RYBELSUS7 MG PO (12:36)
[2023-03-25 12:59] LABS: Source, Urine Straight Cath
[2023-03-25 13:03] LABS: Appearance, Urine Clear (Clear); Bilirubin, Urine Neg (Neg); Blood, Urine 4+ (Neg); Color, Urine Yellow (P-Yellow); Glucose Qualitative, Urine Neg (Neg); Ketones, Urine Neg (Neg); Leukocyte Esterase, Urine Neg (Neg); Nitrite, Urine Neg (Neg); Protein, Urine 2+ (Neg); Specific Gravity, Urine 1.015 (1.003-1.022); Urobilinogen, Urine NORM (Normal)
[2023-03-25 13:14] LABS: Bacteria Not Seen /hpf; Squamous Epithelial Cells Rare /hpf (Few); White Blood Cells, Urine Not Seen /hpf (0-5)
[2023-03-25 14:30] VITALS: BP 125/77
== END 2023-03-25 14:53 | disposition home or self-care (01) ==
LOC: ER 10:20
PROVIDERS: Emergency Medicine; Physician Assistant
DX: R53.1 Weakness (principal); J06.9 Acute upper respiratory infection, unspecified; Z88.8 Allergy status to other drugs, medicaments and biological substances; Z79.899 Other long term (current) drug therapy; Z79.4 Long term (current) use of insulin; Z79.84 Long term (current) use of oral hypoglycemic drugs; Z79.82 Long term (current) use of aspirin; E11.9 Type 2 diabetes mellitus without complications; I10 Essential (primary) hypertension; E78.5 Hyperlipidemia, unspecified; G47.33 Obstructive sleep apnea (adult) (pediatric)
CPT/HCPCS: 51701; 71045; 80053; 81001; 83735; 85025; 99285-25

== ENCOUNTER 2023-09-20 13:41 | Emergency (ER) | payer OTHER ==
[~2023-09-20] VITALS: Ht 165.1 cm; Wt 185.1 kg
[2023-09-20 18:26] VITALS: BP 135/90
== END 2023-09-20 19:00 | disposition home or self-care (01) ==
LOC: ER 13:41
DX: R11.2 Nausea with vomiting, unspecified (principal); E11.9 Type 2 diabetes mellitus without complications; I10 Essential (primary) hypertension; K21.9 Gastro-esophageal reflux disease without esophagitis; Z79.4 Long term (current) use of insulin; Z79.82 Long term (current) use of aspirin; Z79.899 Other long term (current) drug therapy; Z88.8 Allergy status to other drugs, medicaments and biological substances; Z79.84 Long term (current) use of oral hypoglycemic drugs

== ENCOUNTER 2023-10-24 16:15 | Emergency (ER) | payer OTHER ==
[~2023-10-24] VITALS: Ht 162.6 cm; Wt 188.2 kg
[~2023-10-24 16:15] MED LIST changes: +DICY20 PO; +DULOXETINE HCL60 M1 PO; +ONDA4ODT MM; +OXYCODONE-ACET1 EAC3 PO; +PROM12.5S PR; +RYBELSUS7 MG PO
[2023-10-24 16:19] VITALS: BP 143/82
[2023-10-24] MEDS ORDERED: HYDROcodone 5-APAP 325 TAB PO ONE (17:20)
== END 2023-10-24 17:50 | disposition home or self-care (01) ==
LOC: ER 16:15
DX: S30.0XXA Contusion of lower back and pelvis, initial encounter (principal); S73.102A Unspecified sprain of left hip, initial encounter; E11.9 Type 2 diabetes mellitus without complications; I10 Essential (primary) hypertension; K21.9 Gastro-esophageal reflux disease without esophagitis; W18.30XA Fall on same level, unspecified, initial encounter; Z88.8 Allergy status to other drugs, medicaments and biological substances; Z79.4 Long term (current) use of insulin; Z79.84 Long term (current) use of oral hypoglycemic drugs; Z79.899 Other long term (current) drug therapy; Z79.82 Long term (current) use of aspirin
CPT/HCPCS: 73502; 99283-25; A9270

== ENCOUNTER 2024-02-15 12:42 | Emergency (ER) | payer OTHER ==
[~2024-02-15] VITALS: Ht 162.6 cm; Wt 181.4 kg
[2024-02-15] MEDS ORDERED: Ondansetron HCl 2 MG / ML 2ML Vial IV PRN (12:55)
[2024-02-15 13:46] LABS: Hematocrit 38.4 % (33.0-51.0); Hemoglobin 12.6 g/dL (11.5-16.0); Mean Corpuscular HGB Conc 32.8 g/dL (31.5-36.5); Mean Corpuscular Volume 85 fL (80-100); RDW Coefficient Variation 14.2 % (11.7-14.2); RDW Standard Deviation 43.8 fL (35.1-46.3); White Blood Cell Count 11.06 K/mm3 (4.00-11.30)
[2024-02-15 14:00] LABS: Albumin, Blood 3.1 g/dL (3.4-5.0); Albumin/Globulin Ratio 0.7 (0.8-1.8); Bilirubin, Total 0.5 mg/dL (0.1-1.0); Bun/Creatinine Ratio 12.8 (12.0-20.0); Calcium, Blood 9.3 mg/dL (8.5-10.1); Creatinine, Blood 1.17 mg/dL (0.40-1.00); Globulin, Blood 4.5 g/dL (2.2-4.0); Potassium, Blood 4.4 mmol/L (3.5-5.5); Total Protein, Blood 7.6 g/dL (6.4-8.2)
[2024-02-15 15:04] LABS: BASOPHILS PERCENT MAN 0 % (0-2); EOSINOPHILS ABSOLUTE MAN 0.11 K/mm3 (0.00-0.68); EOSINOPHILS PERCENT MAN 1 % (0-6); LYMPHOCYTES ABSOLUTE MAN 2.65 K/mm3 (0.84-5.20); LYMPHOCYTES PERCENT MAN 24 % (21-46); MONOCYTES ABSOLUTE MAN 0.33 K/mm3 (0.16-1.47); MONOCYTES PERCENT MAN 3 % (4-13); MYELOCYTE ABSOLUTE MAN 0.22 K/mm3 (0.00-0.00); MYELOCYTE PERCENT MAN 2 % (0-0); NEUTROPHILS ABSOLUTE MAN 7.74 K/mm3 (1.96-9.15); SEG NEUTROPHILS PERCENT MAN 70 % (41-73); TOTAL CELLS COUNTED 100
[2024-02-15] MEDS ORDERED: Lactated Ringer's 1,000 ML IV ONE (18:30)
[2024-02-15 19:48] VITALS: BP 145/95
[2024-02-15] MEDS ORDERED: Acetaminophen 325 MG TABLET PO ONE (20:45)
[2024-02-15 20:56] LABS: Influenza A, PCR NEGATIVE (NEGATIVE); Influenza B, PCR NEGATIVE (NEGATIVE); Resp Syncytial Virus, PCR NEGATIVE (NEGATIVE); SARS-Cov-2 (COVID-19) PCR, MMC NEGATIVE (NEGATIVE)
[2024-02-15 21:14] LABS: Source, Urine Clean Catch
[2024-02-15 21:36] LABS: Appearance, Urine Clear (Clear); Bilirubin, Urine Neg (Neg); Blood, Urine 4+ (Neg); Color, Urine Yellow (P-Yellow); Glucose Qualitative, Urine Neg (Neg); Ketones, Urine Neg (Neg); Leukocyte Esterase, Urine Neg (Neg); Nitrite, Urine Neg (Neg); Protein, Urine 3+ (Neg); Urobilinogen, Urine NORM (Normal)
[2024-02-15 22:13] LABS: Bacteria Few /hpf; Red Blood Cells, Urine 0-2 /hpf (0-2); Squamous Epithelial Cells Few /hpf (Few); White Blood Cells, Urine 0-2 /hpf (0-5)
[2024-02-15] MEDS ORDERED: METO5A PO (22:33)
== END 2024-02-15 22:55 | disposition home or self-care (01) ==
LOC: ER 12:42
PROVIDERS: Emergency Medicine; Physician Assistant; Student in an Organized Health Care Education/Training Program
DX: R10.33 Periumbilical pain (principal); R10.13 Epigastric pain; R10.32 Left lower quadrant pain; R11.2 Nausea with vomiting, unspecified; I12.9 Hypertensive chronic kidney disease with stage 1 through stage 4 chronic kidney disease, or unspecified chronic kidney disease; N18.9 Chronic kidney disease, unspecified; E11.22 Type 2 diabetes mellitus with diabetic chronic kidney disease; E78.5 Hyperlipidemia, unspecified; K21.9 Gastro-esophageal reflux disease without esophagitis; G47.33 Obstructive sleep apnea (adult) (pediatric); Z79.4 Long term (current) use of insulin; Z79.82 Long term (current) use of aspirin; Z79.899 Other long term (current) drug therapy; Z79.84 Long term (current) use of oral hypoglycemic drugs; Z88.8 Allergy status to other drugs, medicaments and biological substances
CPT/HCPCS: 0241U; 74176; 80053; 81001; 83690; 84484; 85025; 96361; 96374; 99284-25; A9270; J2405; J7120

== ENCOUNTER 2024-02-28 16:33 | Emergency (ER) | payer OTHER ==
[~2024-02-28] VITALS: Ht 162.6 cm; Wt 185.1 kg
[~2024-02-28 16:33] MED LIST changes: +METO5A PO
[2024-02-28 17:40] LABS: BASOPHILS ABSOLUTE AUTO 0.08 K/mm3 (0.00-0.23); BASOPHILS PERCENT AUTO 1 % (0-2); EOSINOPHILS ABSOLUTE AUTO 0.41 K/mm3 (0.00-0.68); EOSINOPHILS PERCENT AUTO 3 % (0-6); Hematocrit 41.9 % (33.0-51.0); Hemoglobin 13.3 g/dL (11.5-16.0); IMMATURE GRAN ABSOLUTE AUTO 0.19 K/mm3 (0.00-0.10); IMMATURE GRAN PERCENT AUTO 2 % (0-1); LYMPHOCYTES ABSOLUTE AUTO 2.47 K/mm3 (0.84-5.20); LYMPHOCYTES PERCENT AUTO 19 % (21-46); MONOCYTES PERCENT AUTO 7 % (4-13); Mean Corpuscular HGB 27.7 pg (26.0-34.0); Mean Corpuscular HGB Conc 31.7 g/dL (31.5-36.5); Mean Corpuscular Volume 87 fL (80-100); Mean Platelet Volume 10.7 fL (9.1-12.4); NEUTROPHILS ABSOLUTE AUTO 8.76 K/mm3 (1.96-9.15); NEUTROPHILS PERCENT AUTO 68 % (41-73); Platelet Count 297 K/mm3 (150-400); RDW Coefficient Variation 13.6 % (11.7-14.2); RDW Standard Deviation 43.1 fL (35.1-46.3); Red Blood Cell Count 4.81 M/mm3 (3.80-5.20); White Blood Cell Count 12.81 K/mm3 (4.00-11.30)
[2024-02-28 18:09] LABS: Albumin, Blood 3.2 g/dL (3.4-5.0); Albumin/Globulin Ratio 0.7 (0.8-1.8); Bilirubin, Total 0.4 mg/dL (0.1-1.0); Bun/Creatinine Ratio 10.9 (12.0-20.0); Calcium, Blood 9.2 mg/dL (8.5-10.1); Creatinine, Blood 1.37 mg/dL (0.40-1.00); Globulin, Blood 4.7 g/dL (2.2-4.0); Magnesium, Blood 1.2 mg/dL (1.6-2.4); Potassium, Blood 3.8 mmol/L (3.5-5.5); Total Protein, Blood 7.9 g/dL (6.4-8.2)
[2024-02-28 21:05] LABS: Source, Urine Clean Catch
[2024-02-28 21:14] LABS: Appearance, Urine Hazy (Clear); Blood, Urine 4+ (Neg); Color, Urine Amber (P-Yellow); Glucose Qualitative, Urine Neg (Neg); Ketones, Urine Neg (Neg); Leukocyte Esterase, Urine 3+ (Neg); Nitrite, Urine Neg (Neg); Protein, Urine 4+ (Neg); Urobilinogen, Urine 1+ (Normal)
[2024-02-28 21:29] LABS: Bilirubin, Urine 1+ (Neg)
[2024-02-28 21:30] LABS: Bacteria Many /hpf; Red Blood Cells, Urine 0-2 /hpf (0-2); Squamous Epithelial Cells Many /hpf (Few); White Blood Cells, Urine TNTC /hpf (0-5)
[2024-02-28] MEDS ORDERED: NS 1,000 ML IV SCH (23:00)
[2024-02-28] MEDS ORDERED: Fluconazole 100 MG Tab PO ONE (23:00)
[2024-02-28] MEDS ORDERED: Magnesium Sulf 2 GM/Water 50ML 50 ML IV ONE (23:00)
[2024-02-28] MEDS ORDERED: Acetaminophen 325 MG TABLET PO ONE (23:55)
[2024-02-29 01:16] VITALS: BP 150/87
== END 2024-02-29 01:20 | disposition home or self-care (01) ==
LOC: ER 16:33
PROVIDERS: Physician Assistant; Student in an Organized Health Care Education/Training Program
DX: K52.9 Noninfective gastroenteritis and colitis, unspecified (principal); B37.2 Candidiasis of skin and nail; E11.65 Type 2 diabetes mellitus with hyperglycemia; E11.22 Type 2 diabetes mellitus with diabetic chronic kidney disease; I12.9 Hypertensive chronic kidney disease with stage 1 through stage 4 chronic kidney disease, or unspecified chronic kidney disease; N18.30 Chronic kidney disease, stage 3 unspecified; E78.5 Hyperlipidemia, unspecified; K21.9 Gastro-esophageal reflux disease without esophagitis; G47.33 Obstructive sleep apnea (adult) (pediatric); Z79.84 Long term (current) use of oral hypoglycemic drugs; Z79.899 Other long term (current) drug therapy; Z79.4 Long term (current) use of insulin; Z88.1 Allergy status to other antibiotic agents; Z88.8 Allergy status to other drugs, medicaments and biological substances
CPT/HCPCS: 80053; 81001; 83690; 83735; 85025; 87086; 96365; 96366; 99284-25; A9270; J3475; J7030

== ENCOUNTER 2024-03-14 13:35 | Inpatient (IN) | payer OTHER ==
[~2024-03-14] VITALS: Ht 162.6 cm; Wt 191.3 kg
[~2024-03-14 13:35] MED LIST changes: +ASPI325EC PO; -Aspir 8181 MG PO; -KERENDIA10 MG; +KERENDIA10 MG PO; -METO5; +METO5 PO; +NOVOLOG FL100 UNIT/3 SC; -NOVOLOG100 UNIT/3 SC; -POTA10T; -RYBELSUS7 MG PO
[2024-03-14 14:41] LABS: Hemoglobin 15.2 g/dL (11.5-16.0); Mean Corpuscular HGB 27.8 pg (26.0-34.0); Mean Corpuscular HGB Conc 32.3 g/dL (31.5-36.5); Mean Corpuscular Volume 86 fL (80-100); Mean Platelet Volume 11.3 fL (9.1-12.4); Platelet Count 361 K/mm3 (150-400); RDW Coefficient Variation 13.4 % (11.7-14.2); RDW Standard Deviation 41.3 fL (35.1-46.3); Red Blood Cell Count 5.46 M/mm3 (3.80-5.20); White Blood Cell Count 26.21 K/mm3 (4.00-11.30)
[2024-03-14 14:47] LABS: Albumin, Blood 3.5 g/dL (3.4-5.0); Albumin/Globulin Ratio 0.7 (0.8-1.8); Bilirubin, Total 0.5 mg/dL (0.1-1.0); Bun/Creatinine Ratio 36.6 (12.0-20.0); Calcium, Blood 10.3 mg/dL (8.5-10.1); Creatinine, Blood 2.02 mg/dL (0.40-1.00); Globulin, Blood 4.8 g/dL (2.2-4.0); Potassium, Blood 4.2 mmol/L (3.5-5.5); Total Protein, Blood 8.3 g/dL (6.4-8.2)
[2024-03-14 15:57] LABS: BAND PERCENT MAN 3 % (0-8); BASOPHILS ABSOLUTE MAN 0.26 K/mm3 (0.00-0.23); BASOPHILS PERCENT MAN 1 % (0-2); EOSINOPHILS ABSOLUTE MAN 0.26 K/mm3 (0.00-0.68); EOSINOPHILS PERCENT MAN 1 % (0-6); LYMPHOCYTES ABSOLUTE MAN 6.29 K/mm3 (0.84-5.20); LYMPHOCYTES PERCENT MAN 24 % (21-46); METAMYELOCYTE ABSOLUTE MAN 0.26 K/mm3 (0.00-0.00); METAMYELOCYTE PERCENT MAN 1 % (0-0); MONOCYTES ABSOLUTE MAN 1.83 K/mm3 (0.16-1.47); MONOCYTES PERCENT MAN 7 % (4-13); MYELOCYTE ABSOLUTE MAN 0.78 K/mm3 (0.00-0.00); MYELOCYTE PERCENT MAN 3 % (0-0); NEUTROPHILS ABSOLUTE MAN 16.51 K/mm3 (1.96-9.15); SEG NEUTROPHILS PERCENT MAN 60 % (41-73); TOTAL CELLS COUNTED 100
[2024-03-14 16:32] LABS: Source, Urine Straight Cath
[2024-03-14 16:40] LABS: Appearance, Urine Clear (Clear); Bilirubin, Urine Neg (Neg); Blood, Urine 1+ (Neg); Color, Urine Yellow (P-Yellow); Glucose Qualitative, Urine Neg (Neg); Ketones, Urine Neg (Neg); Leukocyte Esterase, Urine 1+ (Neg); Nitrite, Urine Neg (Neg); Protein, Urine Neg (Neg); Urobilinogen, Urine NORM (Normal)
[2024-03-14 16:47] LABS: Bacteria Many /hpf; Red Blood Cells, Urine 0-2 /hpf (0-2); Squamous Epithelial Cells Rare /hpf (Few)
[2024-03-14] MEDS ORDERED: NS 1,000 ML IV SCH ×2 (17:20→20:05)
[2024-03-14] MEDS ORDERED: Doxycycline Hyclate 100 MG TAB PO ONE (17:35)
[2024-03-14] MEDS ORDERED: Acetaminophen 500 MG Tab PO ONE (17:55)
[2024-03-14] MEDS ORDERED: Albuterol 2.5 MG/3 ML VIAL INH PRN (20:10)
[2024-03-14] MEDS ORDERED: CefTRIAXone Sodium 1,000 MG in NS 100 ML IV SCH (21:00)
[2024-03-14] MEDS ORDERED: NS 1,000 ML IV ONE (21:00)
[2024-03-14] MEDS ORDERED: Insulin Glargine-Yfgn 100 Unit/mL 3 ML SYR SC SCH (21:00)
[2024-03-14 23:06] VITALS: BP 134/85
[2024-03-15] MEDS ORDERED: TRAM50 PO (00:36)
[2024-03-15] MEDS ORDERED: ALLEGRA ALLERG180 MG PO (00:36)
[2024-03-15 05:12] VITALS: BP 137/84
[2024-03-15] MEDS ORDERED: Omeprazole 20 MG CapCR PO SCH (06:00)
[2024-03-15] MEDS ORDERED: OxyCODONE 5 mg/Acetamin 325 mg TABLET PO PRN (06:05)
[2024-03-15 06:28] LABS: BASOPHILS ABSOLUTE AUTO 0.16 K/mm3 (0.00-0.23); BASOPHILS PERCENT AUTO 1 % (0-2); EOSINOPHILS ABSOLUTE AUTO 0.62 K/mm3 (0.00-0.68); EOSINOPHILS PERCENT AUTO 2 % (0-6); Hematocrit 42.9 % (33.0-51.0); IMMATURE GRAN ABSOLUTE AUTO 0.92 K/mm3 (0.00-0.10); IMMATURE GRAN PERCENT AUTO 4 % (0-1); LYMPHOCYTES ABSOLUTE AUTO 4.65 K/mm3 (0.84-5.20); LYMPHOCYTES PERCENT AUTO 18 % (21-46); MONOCYTES ABSOLUTE AUTO 1.35 K/mm3 (0.16-1.47); MONOCYTES PERCENT AUTO 5 % (4-13); Mean Corpuscular HGB 27.7 pg (26.0-34.0); Mean Corpuscular HGB Conc 32.6 g/dL (31.5-36.5); Mean Corpuscular Volume 85 fL (80-100); Mean Platelet Volume 11.4 fL (9.1-12.4); NEUTROPHILS ABSOLUTE AUTO 17.79 K/mm3 (1.96-9.15); NEUTROPHILS PERCENT AUTO 70 % (41-73); Platelet Count 323 K/mm3 (150-400); RDW Coefficient Variation 13.6 % (11.7-14.2); RDW Standard Deviation 41.7 fL (35.1-46.3); Red Blood Cell Count 5.05 M/mm3 (3.80-5.20); White Blood Cell Count 25.49 K/mm3 (4.00-11.30)
[2024-03-15 06:46] LABS: Albumin, Blood 3.3 g/dL (3.4-5.0); Albumin/Globulin Ratio 0.8 (0.8-1.8); Bilirubin, Total 0.5 mg/dL (0.1-1.0); Bun/Creatinine Ratio 33.2 (12.0-20.0); Creatinine, Blood 2.41 mg/dL (0.40-1.00); Globulin, Blood 4.1 g/dL (2.2-4.0); Potassium, Blood 3.4 mmol/L (3.5-5.5); Total Protein, Blood 7.4 g/dL (6.4-8.2)
[2024-03-15 07:11] VITALS: BP 144/78
[2024-03-15] MEDS ORDERED: Insulin Human Lispro 100 Units/ML 3ML Syringe SC SCH ×2 (07:30→08:30)
--- NOTE | 2024-03-15 07:51 | NUR ---
SHIFT SUMMARY: "MYRANDA" IS A&OX4. VSS, NO ACUTE EVENT SINCE ADMISSION TO THE FLOOR THIS SHIFT. SHE REPORTS ADEQUATE PAIN MANAGEMENT WITH MEDICATION PER MAR. SHE HAS NOT BEEN OUT OF BED THIS SHIFT DUE TO RECENT FALLS. AT BEDSIDE WHO IS PT'S CAREGIVER. SHE IS TOLERATING PO INTAKE WELL, PUREWICK IN PLACE FOR FREQUENCY AND URGENCY AND SKIN ISSUES (YEAST AND REDNESS IN FOLDS). NO OPEN SORES VISUALIZED ON SKIN INSPECTION. PT DID NOT PRODUCE URINE SINCE ADMISSION, BLADDER SCAN NEGATIVE. SHE IS LYING IN BED WITH THE CALL LIGHT IN REACH. BED IN LOWEST POSITION. REPORT WAS GIVEN TO DAY SHIFT RN.
[2024-03-15] MEDS ORDERED: Heparin Sodium,Porcine 5,000 UNIT/0.5 ML SDV SC SCH (09:00)
[2024-03-15] MEDS ORDERED: Miconazole Nitrate 2% 85 GM PWD TOP SCH (09:00)
[2024-03-15] MEDS ORDERED: Aspirin 81 MG Chew PO SCH (09:00)
[2024-03-15] MEDS ORDERED: Potassium Chloride 20 MEQ TabCR PO ONE (12:00)
[2024-03-15] MEDS ORDERED: NS 1,000 ML IV SCH ×2 (12:00→16:05)
[2024-03-15 14:33] LABS: Albumin, Blood 3.1 g/dL (3.4-5.0); Anion Gap 13 mmol/L (3-11); Blood Urea Nitrogen 77 mg/dL (8-24); Bun/Creatinine Ratio 33.6 (12.0-20.0); CO2, Blood 24 mmol/L (21-32); Calcium, Blood 9.3 mg/dL (8.5-10.1); Chloride, Blood 98 mmol/L (98-108); Creatinine, Blood 2.29 mg/dL (0.40-1.00); Glomerular Filtration Rate 24 (60-); Glucose, Blood 276 mg/dL (70-99); Phosphorus, Blood 3.3 mg/dL (2.5-4.9); Potassium, Blood 3.2 mmol/L (3.5-5.5); Sodium, Blood 132 mmol/L (136-145)
[2024-03-15 14:52] VITALS: BP 153/80
[2024-03-15] MEDS ORDERED: NEURONTIN40010 PO (15:07)
[2024-03-15] MEDS ORDERED: Bentyl20 MG PO (15:08)
[2024-03-15] MEDS ORDERED: TROSPIUM CHLORI20 M1 PO (15:08)
[2024-03-15] MEDS ORDERED: ONDA4 PO (15:09)
[2024-03-15] MEDS ORDERED: METO5A PO (15:11)
--- NOTE | 2024-03-15 15:36 | NUR ---
SHIFT SUMMARY MS LONDON HAS CHRONIC JOINT PAIN, MOSTLY KNEE PAIN WHICH SHE SAID IS FROM ARTRITIS. PERCOCET TOOK THE EDGE OFF THE PAIN. SHE ROLLS AND TURNS IN BED WITH 2 PERSON ASSISTANCE, GIVEN BED BATH- REDNESS AND EXCORIATION UNDER PANNIS, ARM PITS, GROIN, BREASTS. CLEANSED AND DRIED, NYSTATIN APPLIED. SHE WORKED WITH PHYSICAL THERAPY, C/O FEELING SOB WHEN SITTING UP ON THE EDGE OF THE BED. REPOSITIONED TO [facility] USING HUYER LIFT AND 2 PERSON ASSIST. BUTTOCKS AND BACK OF THIGHS ARE RED, PT EDUCATED AND ENCOURAGED TO TURN AND GIVE PRESSURE RELIEF REPOSITIONING WITH PILLOWS Q2HRS. AT HER BEDSIDE SAID HE CARES FOR PT AT HOME AND HELPS HER MOVE. SHE WALKS WITH A WALKER AT HOME AND SPENDS MOST OF HER TIME IN A RECLINER, SLEEPING IN THE RECLINER, EDUCATED AGAIN ON PRESSURE RELIEF. IVF BOLUS GIVEN AND IVF INFUSING AT 150CC/HR. IMPROVED UOP THIS SHIFT. BED LOW. CALL LIGHT IN REACH.
[2024-03-15] MEDS ORDERED: Potassium Chl 20MEQ/Water100ML 100 ML IV SCH (16:10)
[2024-03-15] MEDS ORDERED: NS 250 ML IV PRN (16:25)
[2024-03-15] MEDS ORDERED: RYBELSUS14 MG PO (17:21)
[2024-03-15 19:16] VITALS: BP 145/82
[2024-03-15] MEDS ORDERED: Lactobacil 2-S.Thermo-Bifido 1 1 Cap PO SCH (21:00)
[2024-03-15] MEDS ORDERED: Cefepime HCl 2,000 MG in NS 100 ML IV SCH (21:33)
[2024-03-16 02:16] VITALS: BP 140/83
--- NOTE | 2024-03-16 04:25 | NUR ---
SHIFT SUMMARY PT IS A&O X4, ABLE TO MAKE HER NEEDS KNOWN AND COOPERATIVE WITH CARE. @HS BY THE BEDSIDE. HS B. NYSTATIN POWDER ADMINISTERED ORDERED UNDER THE BREASTS AND PANNUS. REDDNESS, MOISTURE AND ODOR NOTED. IV ABX'S INFUSED ORDERED. @MIDNIGHT PT REPORTS JAW PAIN 6-11/22. PT DENIES PRESSURE/TIGHTNESS. PRN PERCOCET ADMINISTERED ORDERED WITH GOOD EFFECTIVNESS. NS INFUSING @150MLS/HR (SEE EMAR.) PUREWICK DRAINING TEA COLOR URINE >1.5LITERS. NO ACUTE EVENTS DURING THIS SHIFT. BED AT THE LOWEST POSITION, CALL LIGHT WITHIN REACH.
--- NOTE | 2024-03-16 06:10 | NUR ---
PT REFUSED CONTINUOUS PULSE OX MONITORING.
[2024-03-16 07:15] VITALS: BP 142/80
[2024-03-16 09:29] LABS: BASOPHILS ABSOLUTE AUTO 0.08 K/mm3 (0.00-0.23); BASOPHILS PERCENT AUTO 1 % (0-2); EOSINOPHILS ABSOLUTE AUTO 0.66 K/mm3 (0.00-0.68); EOSINOPHILS PERCENT AUTO 5 % (0-6); Hematocrit 35.6 % (33.0-51.0); Hemoglobin 11.4 g/dL (11.5-16.0); IMMATURE GRAN ABSOLUTE AUTO 0.56 K/mm3 (0.00-0.10); IMMATURE GRAN PERCENT AUTO 5 % (0-1); LYMPHOCYTES ABSOLUTE AUTO 3.38 K/mm3 (0.84-5.20); LYMPHOCYTES PERCENT AUTO 27 % (21-46); MONOCYTES PERCENT AUTO 6 % (4-13); Mean Corpuscular HGB 27.4 pg (26.0-34.0); Mean Corpuscular Volume 86 fL (80-100); Mean Platelet Volume 11.1 fL (9.1-12.4); NEUTROPHILS ABSOLUTE AUTO 7.04 K/mm3 (1.96-9.15); NEUTROPHILS PERCENT AUTO 57 % (41-73); Platelet Count 241 K/mm3 (150-400); RDW Coefficient Variation 13.5 % (11.7-14.2); RDW Standard Deviation 42.2 fL (35.1-46.3); Red Blood Cell Count 4.16 M/mm3 (3.80-5.20); White Blood Cell Count 12.42 K/mm3 (4.00-11.30)
[2024-03-16 10:00] LABS: Albumin, Blood 2.6 g/dL (3.4-5.0); Anion Gap 13 mmol/L (3-11); Blood Urea Nitrogen 55 mg/dL (8-24); Bun/Creatinine Ratio 33.1 (12.0-20.0); CO2, Blood 22 mmol/L (21-32); Calcium, Blood 8.1 mg/dL (8.5-10.1); Chloride, Blood 104 mmol/L (98-108); Creatinine, Blood 1.66 mg/dL (0.40-1.00); Glomerular Filtration Rate 35 (60-); Glucose, Blood 262 mg/dL (70-99); Phosphorus, Blood 2.1 mg/dL (2.5-4.9); Sodium, Blood 136 mmol/L (136-145)
[2024-03-16] MEDS ORDERED: Potassium Phosphate Dibasic 30 MM in Dextrose 5% 500 ML IV STA (11:26)
[2024-03-16 15:01] VITALS: BP 144/77
--- NOTE | 2024-03-16 15:02 | NUR ---
SHIFT ASSESSEMENT MS LONDON IS OX4. SITTING UP IN RECLINER USING HUYER LIFT FOR TRANSFER. SHE IS WEAK, REQUIRING TWO TO THREE PEOPLE TO HELP TO ROLL HER FROM SIDE TO SIDE IN BED. NO C/O SOB. BLOOD GLUCOSE IN THE 200S PRE MEALS WHICH HER DISCUSSED WITH DR SULLIVAN. SHE HAS CHRONIC ACHES IN HER JOINTS, BUT HAS NOT WANTED PAIN MEDICATIONS SO FAR THIS SHIFT. IN CHAIR NOW, CALL LIGHT IN REACH. AT BEDSIDE.
[2024-03-16] MEDS ORDERED: Acetaminophen 325 MG TABLET PO PRN (15:15)
[2024-03-16] MEDS ORDERED: Insulin Human Lispro 100 Units/ML 3ML Syringe SC STA (19:48)
[2024-03-16 21:22] VITALS: BP 146/80
[2024-03-17 02:31] VITALS: BP 146/76
--- NOTE | 2024-03-17 04:10 | NUR ---
SHIFT SUMMARY NO ACUTE CHANGES OVERNIGHT. PT ABLE TO REST DURING SHIFT. A&OX4, ABLE TO VOICE NEEDS. CALL LIGHT IN REACH, PT USED APPROPRIATELY. PT PLEASANT & COOPERATIVE WITH CARE. FREQUENT REPOSITIONING WITH 2P MAX ASSIST TO ALLEVIATE PRESSURE TO COCCYX / BACK. VOIDING, PUREWICK IN PLACE. PASSING GAS, NO BM OVERNIGHT. DENIES PAIN. AT BEDSIDE FOR PART OF SHIFT, EXPRESSES FEELINGS OF FRUSTRATION WITH COMMUNICATION WITH PROVIDER REGARDING PLAN OF CARE. THIS RN OFFERED GENERAL PLAN OF CARE BASED ON REPORT & PROGRESS NOTES BY PROVIDER. VOICED UNDERSTANDING OF EDUCATION/GENERAL PLAN OF CARE EXPLANATION OFFERED BY THIS RN, BUT REITERATES REQUEST TO DISCUSS SPECIFICALLY WITH FOLLOWING PROVIDER. THIS RN ADVISED TO BRING CONCERNS UP TO PROVIDER AT ROUNDS IN MORNING, TO WHICH WAS AGREEABLE. THIS RN REITERATED THAT IF ANY QUESTIONS/CONCERNS ARE TIME SENSITIVE AND NEED ADRESSED URGENTLY BY PROVIDER, THIS RN CAN COMMMUNICATE WITH TRACK LAYING MACHINE OPERATOR PROVIDER OVERNIGHT. PT AND VOICED UNDERSTANDING. THEY DENY FURTHER QUESTIONS/CONCERNS AT THIS TIME.
[2024-03-17 05:08] LABS: Hematocrit 35.7 % (33.0-51.0); Hemoglobin 11.5 g/dL (11.5-16.0); Mean Corpuscular HGB 27.6 pg (26.0-34.0); Mean Corpuscular HGB Conc 32.2 g/dL (31.5-36.5); Mean Corpuscular Volume 86 fL (80-100); Mean Platelet Volume 11.5 fL (9.1-12.4); Platelet Count 206 K/mm3 (150-400); RDW Coefficient Variation 13.4 % (11.7-14.2); RDW Standard Deviation 42.1 fL (35.1-46.3); Red Blood Cell Count 4.17 M/mm3 (3.80-5.20); White Blood Cell Count 10.25 K/mm3 (4.00-11.30)
[2024-03-17 05:31] LABS: Albumin, Blood 2.7 g/dL (3.4-5.0); Anion Gap 12 mmol/L (3-11); Blood Urea Nitrogen 38 mg/dL (8-24); Bun/Creatinine Ratio 27.9 (12.0-20.0); CO2, Blood 24 mmol/L (21-32); Calcium, Blood 9.3 mg/dL (8.5-10.1); Chloride, Blood 106 mmol/L (98-108); Creatinine, Blood 1.36 mg/dL (0.40-1.00); Glomerular Filtration Rate 45 (60-); Glucose, Blood 213 mg/dL (70-99); Magnesium, Blood 1.7 mg/dL (1.6-2.4); Phosphorus, Blood 2.2 mg/dL (2.5-4.9); Potassium, Blood 3.1 mmol/L (3.5-5.5); Sodium, Blood 139 mmol/L (136-145)
[2024-03-17 07:42] VITALS: BP 151/93
[2024-03-17] MEDS ORDERED: Insulin Human Lispro 100 Units/ML 3ML Syringe SC SCH (08:30)
[2024-03-17] MEDS ORDERED: Potassium Phosphate Dibasic 30 MM in Dextrose 5% 500 ML IV STA (09:31)
--- NOTE | 2024-03-17 16:21 | NUR ---
SHIFT SUMMARY MS LONDON IS OX4, SLEEPY ON AND OFF TODAY. C/O JOINT ACHES AND HEADACHE TO LEFT QUAKER FOR MOST OF THE DAY LESSENED WITH PERCOCET. IVF CONTINUE AT 150CC/HR. PUREWICK IN PLACE WITH CLEAR YELLOW UOP. RIGHT HAND IS SWOLLEN, SMALL BRUISE TO R WRIST THOUGH SHE DOESN'T REMEMBER BANGING IT, ARM ELEVATED IN BED. TURNED IN BED WITH ASSISTANCE, MS LONDON IS MOVING HERSELF MORE IN BED AND REPORTS DOING MUSCLE EXERCISES THAT SHE WAS GIVEN BY PHYSICAL THERAPY. SHE SAT UP ON THE EDGE OF THE BED WITH TWO PERSON ASSISTANCE. SKIN CARE DONE, RED AND EXCORIATED AREAS IN SKIN FOLDS. EATING AND DRINKING WELL. BED LOW, CALL LIGHT IN REACH. SUPPORTIVE AT BEDSIDE.
[2024-03-17 20:09] VITALS: BP 140/76
[2024-03-18 01:36] VITALS: BP 147/86
[2024-03-18] MEDS ORDERED: Ondansetron HCl 2 MG / ML 2ML Vial IV PRN (03:00)
--- NOTE | 2024-03-18 03:13 | NUR ---
PATIENT C/O ABD PAIN REQUESTING ZOFRAN AND TAGAMET. NEITHER OF THESES MEDS. ORDERED. CALLED DR MACEDO AND ORDER FOR ALISSA AND TO GIVE HER 0600 PRILOSEC EARLY. PATIENT DENIES NAUSEA, JUST ABD PAIN.
--- NOTE | 2024-03-18 04:13 | NUR ---
SHIFT SUMMARY PATIENT WAS ABLE TO SLEEP BETTER TONIGHT. DID HAVE A LARGE DRY BM THAT WOULD NOT FLUSH DOWN THE TOILET. DID CALL DR MACEDO FOR ZOFRAN AND PRILOSEC ORDER. HELD HER ORDER OF INSULIN. SINCE SHE SLEPT THRU DINNER AND DID NOT EAT.
[2024-03-18 07:49] VITALS: BP 158/92
[2024-03-18 11:45] LABS: Albumin, Blood 2.7 g/dL (3.4-5.0); Anion Gap 10 mmol/L (3-11); Blood Urea Nitrogen 20 mg/dL (8-24); Bun/Creatinine Ratio 19.4 (12.0-20.0); CO2, Blood 25 mmol/L (21-32); Calcium, Blood 8.5 mg/dL (8.5-10.1); Chloride, Blood 108 mmol/L (98-108); Creatinine, Blood 1.03 mg/dL (0.40-1.00); Glomerular Filtration Rate 63 (60-); Glucose, Blood 245 mg/dL (70-99); Phosphorus, Blood 1.3 mg/dL (2.5-4.9); Potassium, Blood 3.5 mmol/L (3.5-5.5); Sodium, Blood 139 mmol/L (136-145)
[2024-03-18] MEDS ORDERED: Potassium Phosphate Dibasic 30 MM in Dextrose 5% 500 ML IV STA (15:10)
[2024-03-18 16:25] VITALS: BP 154/88
--- NOTE | 2024-03-18 17:02 | NUR ---
SHIFT SUMMARY: PT AOX4, HAD CONSTANT FLUIDS DISCONTINUED ONLY USED PRIMARY FOR OTHER INFUSIONS. INSULIN CHANGED TO 40U TID BEFORE MEALS. PT WAS ABLE TO WIGGLE TO THE EDGE OF BED WITH HELP OF FAMILY PROTECTION SPECIALIST AND NURSE TO EAT LUNCH AT EDGE OF BED. BED CHANGE AND PUREWICK CHANGED AND CLEANED AFTER LUNCH.DISCUSSED GETTING ESTROGEN THAT PT TAKES AT HOME. ORDERED AND APPROVED @1700. PT IN GOOD MOOD AND AFFECT, COMPLAINED OF SOME DISCOMFORT ON PUREWICK, HELPED WITH SOME BABY POWDER AND FIXING SOME KINKS IN THE SUCTION. PT RESTING WITH AT BEDSIDE. BED IN LOWEST POSITION, AND CALL LIGHT IN REACH. CONTINUING CARE.
[2024-03-18] MEDS ORDERED: ESTRADIOL PO SCH (18:00)
[2024-03-18] MEDS ORDERED: NORETHINDRONE PO SCH (18:00)
[2024-03-18 19:50] VITALS: BP 151/103
[2024-03-19 02:29] VITALS: BP 133/79
--- NOTE | 2024-03-19 04:47 | NUR ---
NOC SHIFT SUMMARY MEDICATED PER EMAR FOR HEADACHE. NO OTHER ACUTE ISSUES OVERNIGHT. PT LOOKING FORWARD TO ATTEMPTING TO WALK WITH PT TODAY SHE IS HOPING TO BE ABLE TO GO HOME INSTEAD OF REHAB IF POSSIBLE. AT BEDSIDE.
[2024-03-19 07:13] VITALS: BP 169/97
[2024-03-19 08:18] LABS: Albumin, Blood 2.6 g/dL (3.4-5.0); Anion Gap 10 mmol/L (3-11); Blood Urea Nitrogen 16 mg/dL (8-24); CO2, Blood 26 mmol/L (21-32); Calcium, Blood 8.4 mg/dL (8.5-10.1); Chloride, Blood 106 mmol/L (98-108); Creatinine, Blood 1.14 mg/dL (0.40-1.00); Glomerular Filtration Rate 55 (60-); Glucose, Blood 208 mg/dL (70-99); Phosphorus, Blood 1.9 mg/dL (2.5-4.9); Potassium, Blood 3.7 mmol/L (3.5-5.5); Sodium, Blood 138 mmol/L (136-145)
[2024-03-19] MEDS ORDERED: Potassium Phosphate Dibasic 30 MM in Dextrose 5% 500 ML IV STA (09:00)
[2024-03-19] MEDS ORDERED: Bumetanide 1 MG Tab PO SCH (09:00)
--- NOTE | 2024-03-19 09:00 | NUR ---
Pt laying in bed awake, states she has a h/a, spouce here at bedside, pt a/ox4, pleasant and cooperative with care, follows commands well, lungs are clear in upper rahman, dim in bases, resp even and unlabored, no cough noted, on r/a, hrr, ppp+2, cap refill <3 sec, vs stable, afebrile, power glide to rajinder site is clear and patent, will not draw, btx4, abd flat soft nontender, purwick and briefs in place, skin has yeast rash to panus, courtney area red, moves arms well, is lift to get oob, marcos, jessica light in reach.
[2024-03-19 15:26] VITALS: BP 151/85
--- NOTE | 2024-03-19 18:22 | NUR ---
spouce came out and said pt stood and took a few steps today, was pleased, no acute changes this shift. call light in reach.
[2024-03-19 21:11] VITALS: BP 135/76
[2024-03-20 03:15] VITALS: BP 139/87
[2024-03-20 06:21] LABS: Albumin, Blood 2.7 g/dL (3.4-5.0); Anion Gap 11 mmol/L (3-11); Blood Urea Nitrogen 17 mg/dL (8-24); CO2, Blood 27 mmol/L (21-32); Calcium, Blood 8.8 mg/dL (8.5-10.1); Chloride, Blood 104 mmol/L (98-108); Creatinine, Blood 1.21 mg/dL (0.40-1.00); Glomerular Filtration Rate 52 (60-); Glucose, Blood 211 mg/dL (70-99); Phosphorus, Blood 2.4 mg/dL (2.5-4.9); Sodium, Blood 138 mmol/L (136-145)
--- NOTE | 2024-03-20 06:41 | NUR ---
SHIFT SUMMARY: Pt is admitted for YARED and is a full code. Is alert and able to make needs known. ADLs have been 2p but did not get out of bed. Denies pain or discomfort when asked. Power glide up right upper arm is patent with dressing that is CDI.
[2024-03-20 07:22] VITALS: BP 142/86
[2024-03-20 15:37] VITALS: BP 144/86
--- NOTE | 2024-03-20 17:52 | NUR ---
SHIFT SUMMARY PT UP TO CHAIR TODAY FOR LUNCH. ANTIFUNGAL POWDER APPLIED TO PANUS, FOLDS AND GROIN. MODERATE BOWEL MOVEMENT TODAY BUT HARD CLUMPS. APPETITE WELL. PUREWICK IN PLACE AND WORKING WELL. PT IS ABLE TO STAND AND PIVOT WITH WALKER AND ASSITANCE TO CHAIR OR COMMODE. POWERGLIDE TO [place].
[2024-03-20 20:35] VITALS: BP 131/89
[2024-03-21 03:00] VITALS: BP 149/83
--- NOTE | 2024-03-21 04:21 | NUR ---
SHIFT SUMMARY. PATIENT IS A&OX4. PATIENT IS A 2P ASSIST WITH FWW TO STAND PIVOT c FWW OR LIFT. PATIENT HAS PUREWICK IN PLACE D/T WEAKNESS. PATIENT CALLS APPROPRIATELY AND IS ABLE TO MAKE HER NEEDS KNOWN. PATIENT REPOSITIONED NEEDED. PLAN IS FOR PATIENT TO DISCHARGE TO SNF FOR REHAB. BED IS LOCKED IN THE LOWEST POSITION WITH CALL LIGHT IN REACH. CARE IS ONGOING.
[2024-03-21 05:56] LABS: Albumin, Blood 2.9 g/dL (3.4-5.0); Anion Gap 11 mmol/L (3-11); Blood Urea Nitrogen 22 mg/dL (8-24); Bun/Creatinine Ratio 15.6 (12.0-20.0); CO2, Blood 28 mmol/L (21-32); Calcium, Blood 9.5 mg/dL (8.5-10.1); Chloride, Blood 103 mmol/L (98-108); Creatinine, Blood 1.41 mg/dL (0.40-1.00); Glomerular Filtration Rate 43 (60-); Glucose, Blood 225 mg/dL (70-99); Phosphorus, Blood 2.5 mg/dL (2.5-4.9); Sodium, Blood 138 mmol/L (136-145)
[2024-03-21 07:13] VITALS: BP 146/86
[2024-03-21] MEDS ORDERED: Docusate Sodium/Senna 1 Tab PO PRN (11:35)
[2024-03-21] MEDS ORDERED: Metoclopramide HCl 5MG / ML 2ML Vial IV PRN (11:35)
[2024-03-21] MEDS ORDERED: Insulin Human Lispro 100 Units/ML 3ML Syringe SC SCH ×2 (11:39→11:40)
[2024-03-21] MEDS ORDERED: Calcium/Vit D 600 mg-400 Unit Tab PO SCH (11:50)
[2024-03-21] MEDS ORDERED: Dicyclomine HCl 20 MG Tab PO PRN (11:55)
[2024-03-21] MEDS ORDERED: TraMADol HCl 50 MG Tab PO PRN (11:55)
[2024-03-21] MEDS ORDERED: Ascorbic Acid 500 MG Tab PO PRN (12:00)
[2024-03-21] MEDS ORDERED: DiphenhydrAMINE HCL 25 MG Cap PO PRN (12:50)
[2024-03-21] MEDS ORDERED: Gabapentin 400 MG Cap PO SCH (14:00)
--- NOTE | 2024-03-21 14:55 | NUR ---
Upon receiving a request for spiritual care, I visited the patient. She has her SO Jose, Bedside. They tell me about her medical problems, their 26 year relationship and their Druze marcelina journey. The patient attended [facility] in [place] since she was a child and hs abeen greatly encourgaed in her marcelina by Brim Pouncing Machine Operator Otf Guthrie who was the former firesetter at that buddhism. I provided therapeutic listening and prayer. Patient responded well and showed signs of being encouraged in her marcelina.
[2024-03-21 15:12] VITALS: BP 131/80
[2024-03-21] MEDS ORDERED: DULoxetine HCL 60 MG Capsule DR PO SCH (18:00)
--- NOTE | 2024-03-21 18:06 | NUR ---
shift summary PT REPORTED GENERALIZED ITCHING, DR. JIMÉNEZ ADDED PO BENADRYL. ON TOP OF OTHER PRN'S FOR NAUSEA AND ABD CRAMPING. PT GOT UP TO CHAIR THIS EVENING WT 2 PERSON ASSIST AND FWW. PUREWICK IN PLACE FOR FREQUENCY AND URGENCY. PRN PERCOCET GIVEN X1 WITH REPORTED RELIEF. LUNCH TIME SCHEUDLED INSULIN HELD DUE TO PT FEELING NAUSEAS.
[2024-03-21 19:27] VITALS: BP 127/96
[2024-03-21] MEDS ORDERED: Trospium Chloride 20 MG Tab PO SCH (21:00)
[2024-03-21] MEDS ORDERED: Famotidine 20 MG Tab PO SCH (21:00)
[2024-03-22 02:53] VITALS: BP 151/85
[2024-03-22 07:27] LABS: Albumin, Blood 2.9 g/dL (3.4-5.0); Anion Gap 14 mmol/L (3-11); Blood Urea Nitrogen 26 mg/dL (8-24); Bun/Creatinine Ratio 17.9 (12.0-20.0); CO2, Blood 24 mmol/L (21-32); Calcium, Blood 9.1 mg/dL (8.5-10.1); Chloride, Blood 103 mmol/L (98-108); Creatinine, Blood 1.45 mg/dL (0.40-1.00); Glomerular Filtration Rate 42 (60-); Glucose, Blood 274 mg/dL (70-99); Phosphorus, Blood 3.1 mg/dL (2.5-4.9); Potassium, Blood 4.4 mmol/L (3.5-5.5); Sodium, Blood 137 mmol/L (136-145)
--- NOTE | 2024-03-22 07:40 | NUR ---
SHIFT SUMMARY PATIENT MOVING BETTER, AND FEELING STRONGER. SPOUSE AT BEDSIDE PART OF THE NIGHT.BENADRYL FOR RASH ON BACK. SLEPT IN LONG INTERVALS.
[2024-03-22 07:51] VITALS: BP 128/76
[2024-03-22] MEDS ORDERED: Biotin 5 MG Cap PO SCH (09:00)
[2024-03-22] MEDS ORDERED: Metolazone 5 MG Tab PO SCH (09:00)
[2024-03-22] MEDS ORDERED: Pravastatin Sodium 20 MG Tab PO SCH (09:00)
[2024-03-22] MEDS ORDERED: Multivitamins 1 Tab PO SCH (09:00)
[2024-03-22] MEDS ORDERED: Allopurinol 100 MG Tab PO SCH (09:00)
[2024-03-22] MEDS ORDERED: Cholecalciferol 1000 Unit Tablet (=25MCG) PO SCH (09:00)
[2024-03-22 11:49] LABS: SARS-Cov-2 (COVID-19) PCR, MMC NEGATIVE (NEGATIVE)
--- NOTE | 2024-03-22 15:58 | NUR ---
SHIFT SUMMARY/DISCHARGE PT A&OX4, COOPERATIVE, ABLE TO MAKE NEEDS KNOWN, AT BEDSIDE. DISCHARGE PAPERWORK WENT IT WITH TRANSPORTATION IN HAND. EMS TRANSPORTED PT BY WHEELCHAIR TO TRANSPORT VEHICLE. POWERGLIDE WAS REMOVED BY CHINTAN ONEIL. BELONGING IN HAND. THIS RN CALLED TO GIVE REPORT TO NAA MEDEROS RN. REPORT WENT WELL, ALL QUESTIONS ANSWERED.
[2024-03-23] MEDS ORDERED: Calcitriol 0.25 MCG Cap PO SCH (09:00)
== END 2024-03-22 15:36 | DRG 872 ==
LOC: ER 13:35 → ERHOLD 13:36 → MEDS 13:36 → ENPENDDIS 03-22 14:45 → MEDS 03-22 15:36
PROVIDERS: Emergency Medicine; Family Medicine; Internal Medicine; Nurse Practitioner Acute Care; ADMIT Student in an Organized Health Care Education/Training Program
DX: A41.59 Other Gram-negative sepsis (principal); N17.9 Acute kidney failure, unspecified; E87.1 Hypo-osmolality and hyponatremia; N39.0 Urinary tract infection, site not specified; Z68.45 Body mass index [BMI] 70 or greater, adult; R65.20 Severe sepsis without septic shock; I12.9 Hypertensive chronic kidney disease with stage 1 through stage 4 chronic kidney disease, or unspecified chronic kidney disease; E11.22 Type 2 diabetes mellitus with diabetic chronic kidney disease; N18.32 Chronic kidney disease, stage 3b; E87.6 Hypokalemia; E66.813 Obesity, class 3; E78.5 Hyperlipidemia, unspecified; G47.33 Obstructive sleep apnea (adult) (pediatric); E86.1 Hypovolemia; T50.1X5A Adverse effect of loop [high-ceiling] diuretics, initial encounter; E83.39 Other disorders of phosphorus metabolism; M17.12 Unilateral primary osteoarthritis, left knee; K21.9 Gastro-esophageal reflux disease without esophagitis; M10.9 Gout, unspecified; I95.9 Hypotension, unspecified; Z79.4 Long term (current) use of insulin; Z88.8 Allergy status to other drugs, medicaments and biological substances; Z88.6 Allergy status to analgesic agent
CPT/HCPCS: 36415; 51701; 71045; 73564; 80053; 80069; 81001; 82550; 82947; 83036; 83605; 83735; 85025; 85027; 87040; 87077; 87086; 87186; 93005; 93010; 94760; 94762; 96360; 96361; 96372; 96374; 97110; 97162; 97530; 99285-25; A9270; C1751; G0378; J0692; J0696; J1644; J1815; J2405; J2765; J3480; J7030; J7050; J7060; U0002

== ENCOUNTER 2024-04-13 03:48 | Inpatient (IN) | payer OTHER ==
[~2024-04-13] VITALS: Ht 162.6 cm; Wt 199.7 kg
[~2024-04-13 03:48] MED LIST changes: +ALLEGRA ALLERG180 MG PO; +Bentyl20 MG PO; +NEURONTIN40010 PO; +RYBELSUS14 MG PO; +TRAM50 PO; +TROSPIUM CHLORI20 M1 PO
[2024-04-13] MEDS ORDERED: DiphenhydrAMINE HCl 50 MG Cap PO ONE (05:15)
[2024-04-13 05:46] LABS: BASOPHILS ABSOLUTE AUTO 0.07 K/mm3 (0.00-0.23); BASOPHILS PERCENT AUTO 1 % (0-2); EOSINOPHILS ABSOLUTE AUTO 0.37 K/mm3 (0.00-0.68); EOSINOPHILS PERCENT AUTO 4 % (0-6); Hematocrit 36.1 % (33.0-51.0); Hemoglobin 11.1 g/dL (11.5-16.0); IMMATURE GRAN ABSOLUTE AUTO 0.26 K/mm3 (0.00-0.10); IMMATURE GRAN PERCENT AUTO 3 % (0-1); LYMPHOCYTES PERCENT AUTO 22 % (21-46); MONOCYTES ABSOLUTE AUTO 0.76 K/mm3 (0.16-1.47); MONOCYTES PERCENT AUTO 8 % (4-13); Mean Corpuscular HGB 26.6 pg (26.0-34.0); Mean Corpuscular HGB Conc 30.7 g/dL (31.5-36.5); Mean Corpuscular Volume 86 fL (80-100); NEUTROPHILS ABSOLUTE AUTO 6.26 K/mm3 (1.96-9.15); NEUTROPHILS PERCENT AUTO 63 % (41-73); RDW Coefficient Variation 14.1 % (11.7-14.2); RDW Standard Deviation 44.3 fL (35.1-46.3); Red Blood Cell Count 4.18 M/mm3 (3.80-5.20); White Blood Cell Count 9.92 K/mm3 (4.00-11.30)
[2024-04-13 05:56] LABS: Albumin, Blood 2.9 g/dL (3.4-5.0); Albumin/Globulin Ratio 0.6 (0.8-1.8); Bilirubin, Total 0.6 mg/dL (0.1-1.0); Bun/Creatinine Ratio 14.3 (12.0-20.0); Calcium, Blood 9.2 mg/dL (8.5-10.1); Creatinine, Blood 1.4 mg/dL (0.40-1.00); Globulin, Blood 4.5 g/dL (2.2-4.0); Potassium, Blood 3.9 mmol/L (3.5-5.5); Total Protein, Blood 7.4 g/dL (6.4-8.2)
[2024-04-13 06:02] LABS: Mean Platelet Volume 10.9 fL (9.1-12.4)
[2024-04-13 06:16] LABS: Source, Urine Clean Catch
[2024-04-13 06:22] LABS: Appearance, Urine Clear (Clear); Bilirubin, Urine Neg (Neg); Blood, Urine Neg (Neg); Color, Urine Yellow (P-Yellow); Glucose Qualitative, Urine 4+ (Neg); Ketones, Urine Neg (Neg); Leukocyte Esterase, Urine Neg (Neg); Nitrite, Urine Pos (Neg); Protein, Urine 3+ (Neg); Urobilinogen, Urine 1+ (Normal); pH, Urine 6.5 (5.0-8.0)
[2024-04-13 06:36] LABS: Bacteria Mod /hpf; Red Blood Cells, Urine 0-2 /hpf (0-2); Squamous Epithelial Cells Few /hpf (Few)
[2024-04-13] MEDS ORDERED: OxyCODONE 5 mg/Acetamin 325 mg TABLET PO ONE (07:05)
[2024-04-13] MEDS ORDERED: CefTRIAXone Sodium 1,000 MG in NS 50 ML IV ONE (07:05)
[2024-04-13] MEDS ORDERED: Magnesium Hydroxide Conc 10 ML UDC PO PRN (11:25)
[2024-04-13] MEDS ORDERED: FLU VACC TS2024-25(6MOS UP)/PF 45 MCG/0.5 ML SYRINGE IM SCH (11:25)
[2024-04-13] MEDS ORDERED: Acetaminophen 325 MG TABLET PO PRN (11:25)
[2024-04-13] MEDS ORDERED: CefTRIAXone Sodium 1,000 MG in NS 100 ML IV ONE (11:30)
[2024-04-13] MEDS ORDERED: Bisacodyl 10 MG Supp PR PRN (11:30)
[2024-04-13] MEDS ORDERED: Metoclopramide HCl 10 MG Tab PO PRN (11:45)
[2024-04-13] MEDS ORDERED: NS 1,000 ML IV SCH (12:00)
[2024-04-13] MEDS ORDERED: TraMADol HCl 50 MG Tab PO PRN (12:10)
[2024-04-13] MEDS ORDERED: Insulin Human Lispro 100 Units/ML 3ML Syringe SC SCH ×2 (12:30→16:30)
[2024-04-13 13:05] VITALS: BP 169/92
[2024-04-13] MEDS ORDERED: RYBELSUS14 MG PO (15:11)
[2024-04-13] MEDS ORDERED: DiphenhydrAMINE HCL 25 MG Cap PO PRN (15:20)
[2024-04-13 15:51] VITALS: BP 172/92
[2024-04-13] MEDS ORDERED: Insulin Human Regular 100 UNIT/ML 10ML Vial SC SCH (16:30)
--- NOTE | 2024-04-13 17:43 | NUR ---
SHIFT SUMMARY PT A&OX4, VSS, AMB W/ 2-3P PIVOT ASSIST, TOLERATING PO, VOIDING, AND DENIED PAIN. NS CONT TO INFUSE PER ORDER. INTERDRY WICKING FABRIC APPLIED TO PROBLEMATIC AREAS. CALL LIGHT WITHIN REACH AND PT ABLE TO MAKE NEEDS KNOWN.
[2024-04-13] MEDS ORDERED: Ondansetron 4 MG TAB PO PRN (18:15)
[2024-04-13 19:16] VITALS: BP 147/80
[2024-04-13] MEDS ORDERED: Atorvastatin 10 MG Tab PO SCH (21:00)
[2024-04-13] MEDS ORDERED: Miconazole Nitrate 2% 85 GM PWD TOP SCH (21:00)
[2024-04-13] MEDS ORDERED: Insulin Glargine-Yfgn 100 Unit/mL 3 ML SYR SC SCH ×2 (21:00)
[2024-04-14] MEDS ORDERED: Miconazole 2% Vaginal Cream 45 GM VAG PRN (01:25)
[2024-04-14 02:28] VITALS: BP 187/77
[2024-04-14 04:45] VITALS: BP 167/99
[2024-04-14 04:51] LABS: BASOPHILS ABSOLUTE AUTO 0.06 K/mm3 (0.00-0.23); BASOPHILS PERCENT AUTO 1 % (0-2); EOSINOPHILS ABSOLUTE AUTO 0.33 K/mm3 (0.00-0.68); EOSINOPHILS PERCENT AUTO 3 % (0-6); Hematocrit 31.8 % (33.0-51.0); IMMATURE GRAN ABSOLUTE AUTO 0.25 K/mm3 (0.00-0.10); IMMATURE GRAN PERCENT AUTO 2 % (0-1); LYMPHOCYTES ABSOLUTE AUTO 2.33 K/mm3 (0.84-5.20); LYMPHOCYTES PERCENT AUTO 22 % (21-46); MONOCYTES ABSOLUTE AUTO 0.96 K/mm3 (0.16-1.47); MONOCYTES PERCENT AUTO 9 % (4-13); Mean Corpuscular HGB 26.7 pg (26.0-34.0); Mean Corpuscular HGB Conc 31.4 g/dL (31.5-36.5); Mean Corpuscular Volume 85 fL (80-100); Mean Platelet Volume 10.3 fL (9.1-12.4); NEUTROPHILS ABSOLUTE AUTO 6.51 K/mm3 (1.96-9.15); NEUTROPHILS PERCENT AUTO 62 % (41-73); Platelet Count 196 K/mm3 (150-400); RDW Coefficient Variation 14.2 % (11.7-14.2); RDW Standard Deviation 43.8 fL (35.1-46.3); Red Blood Cell Count 3.74 M/mm3 (3.80-5.20); White Blood Cell Count 10.44 K/mm3 (4.00-11.30)
[2024-04-14 05:15] LABS: Albumin, Blood 2.8 g/dL (3.4-5.0); Albumin/Globulin Ratio 0.7 (0.8-1.8); Bilirubin, Total 0.6 mg/dL (0.1-1.0); Bun/Creatinine Ratio 10.8 (12.0-20.0); C-REACTIVE PROTEIN, EXT RANGE 4.42 mg/dL (0.000-0.300); Calcium, Blood 8.9 mg/dL (8.5-10.1); Creatinine, Blood 1.39 mg/dL (0.40-1.00); Globulin, Blood 4.2 g/dL (2.2-4.0); Magnesium, Blood 1.6 mg/dL (1.6-2.4); Phosphorus, Blood 3.1 mg/dL (2.5-4.9); Potassium, Blood 3.8 mmol/L (3.5-5.5)
--- NOTE | 2024-04-14 05:59 | NUR ---
SHIFT SUMMARY PT IS ALERT AND ORIENTED TIMES 3. PT IS FULL CODE. PT DID NOT TAKE HS INSULIN BECAUSE IT IS NOT THE SAME AMOUNT SHE TAKES AT HOME. PT S BED ALSO BROKE AND HAD TO GET A REPLACEMENT BED. BED IN LOW POSITION, RAILS TIMES 2, CALL LIGHT WITHIN REACH.
[2024-04-14] MEDS ORDERED: Omeprazole 20 MG CapCR PO SCH (06:00)
[2024-04-14 07:02] VITALS: BP 156/87
[2024-04-14] MEDS ORDERED: FAMO10 PO (08:29)
[2024-04-14] MEDS ORDERED: METF500C PO (08:30)
[2024-04-14] MEDS ORDERED: RYBELSUS14 MG PO (08:36)
[2024-04-14] MEDS ORDERED: Multivitamins 1 Tab PO SCH (09:00)
[2024-04-14] MEDS ORDERED: Losartan Potassium 50 MG Tab PO SCH (09:00)
[2024-04-14] MEDS ORDERED: SEMAGLUTIDE 14 MG PO SCH (09:00)
[2024-04-14] MEDS ORDERED: CefTRIAXone Sodium 2,000 MG in NS 100 ML IV SCH ×2 (09:00→13:56)
[2024-04-14] MEDS ORDERED: Enoxaparin 40 MG/0.4 ML SYR SC SCH (09:00)
[2024-04-14 14:56] VITALS: BP 149/90
[2024-04-14] MEDS ORDERED: CefTRIAXone 2000 MG Vial IM SCH (17:07)
--- NOTE | 2024-04-14 17:59 | NUR ---
SHIFT SUMMARY: AT BEGINNING OF SHIFT, PATIENT SPOUSE REPORTS THAT HE IS NOT HAPPY c OVERALL CARE THAT THE PATIENT IS GETTING SINCE THEY CAME TO ER YESTERDAY, HER MEDS IS MISSED UP AND NO DOCTOR HAS NOT BEEN TALKING TO THEM OF WHAT'S GOING ON. THIS RN SPOKE TO PATIENT AND SPOUSE WITH REGARDS TO MEDS THAT WE CAN ADRESS WHEN THE DOCTORS DO HIS/HER ROUND. THIS RN EDUCATED PATIENT AND SPOUSE c PLAN OF CARE AND THE IMPORTANCE OF MOBILITY; TO START GETTING OOB AND USING THE BSC c PERMIT AGENT. SPOUSE SHOWS FRUSTRATIONS AND NOT HAPPY c THE PLAN. CAN STRIPER NOTIFIED c THIS ISSUES. HIEU CARLSON, SPOKE TO PATIENT AND SPOUSE. PATIENT SPOUSE IS OVERBEARING, HE DOES ALL THE TALKING AND WON'T LET THE PATIENT SPEAK OF WHAT SHE WANT. PATIENT A/OX4, CALM, PLEASANT AND COOPERATIVE c CARE. PATIENT REPORTS FORD, MEDICATED X2 FOR FORD c GOOD EFFECT. PATIENT HAS NO IV ACCESS c ORDER. RECEIVED IM ABX AND SCHEDULED MEDS PER EMAR. VITAL SIGNS REVIEWED. PATIENT USES BSC c PERMIT AGENT T/O SHIFT. PATIENT SAT UP IN THE RECLINER CHAIR FOR ABOUT 6 HRS THIS SHIFT. SPOUSE AT BEDSIDE ALL SHIFT. CALL LIGHT IN REACH.
[2024-04-14] MEDS ORDERED: DULoxetine HCL 60 MG Capsule DR PO SCH (18:00)
[2024-04-14 19:32] VITALS: BP 153/86
[2024-04-15 02:44] VITALS: BP 190/76
[2024-04-15 03:53] VITALS: BP 179/86
--- NOTE | 2024-04-15 04:10 | NUR ---
A&Ox4, able to make needs known, slept intermittently t/o the night between bed and recliner, cont to bsc w/1p assist and FWW, pt awake in bed at this time w/call light in reach, will cont to monitor until report govem to oncoming nurse.
[2024-04-15 05:20] LABS: BASOPHILS ABSOLUTE AUTO 0.08 K/mm3 (0.00-0.23); BASOPHILS PERCENT AUTO 1 % (0-2); EOSINOPHILS ABSOLUTE AUTO 0.46 K/mm3 (0.00-0.68); EOSINOPHILS PERCENT AUTO 4 % (0-6); Hematocrit 33.3 % (33.0-51.0); Hemoglobin 10.2 g/dL (11.5-16.0); IMMATURE GRAN ABSOLUTE AUTO 0.35 K/mm3 (0.00-0.10); IMMATURE GRAN PERCENT AUTO 3 % (0-1); LYMPHOCYTES PERCENT AUTO 25 % (21-46); MONOCYTES ABSOLUTE AUTO 0.88 K/mm3 (0.16-1.47); MONOCYTES PERCENT AUTO 8 % (4-13); Mean Corpuscular HGB 26.4 pg (26.0-34.0); Mean Corpuscular HGB Conc 30.6 g/dL (31.5-36.5); Mean Corpuscular Volume 86 fL (80-100); Mean Platelet Volume 10.4 fL (9.1-12.4); NEUTROPHILS ABSOLUTE AUTO 6.05 K/mm3 (1.96-9.15); NEUTROPHILS PERCENT AUTO 58 % (41-73); Platelet Count 203 K/mm3 (150-400); RDW Coefficient Variation 14.1 % (11.7-14.2); RDW Standard Deviation 44.3 fL (35.1-46.3); Red Blood Cell Count 3.87 M/mm3 (3.80-5.20); White Blood Cell Count 10.42 K/mm3 (4.00-11.30)
[2024-04-15 05:44] LABS: Bun/Creatinine Ratio 10.6 (12.0-20.0); Calcium, Blood 8.9 mg/dL (8.5-10.1); Creatinine, Blood 1.42 mg/dL (0.40-1.00); Potassium, Blood 3.7 mmol/L (3.5-5.5)
[2024-04-15] MEDS ORDERED: SEMAGLUTIDE 14 MG PO SCH (07:11)
[2024-04-15 08:27] VITALS: BP 151/89
--- NOTE | 2024-04-15 12:39 | NUR ---
DR NASCIMENTO NOTIFED ABOUT PT BLOOD GLUCOSE BEING 140. AND THIS NURSE EXPRESSING CONCERN OF GIVING BASAL DOSE OF 50 UNITS OF HUMALOG. PHYSICIAN STATED HE WOULD LOOK INTO IT AND CALL BACK.
[2024-04-15 16:07] VITALS: BP 162/81
[2024-04-15] MEDS ORDERED: Insulin Human Lispro 100 Units/ML 3ML Syringe SC SCH (16:30)
[2024-04-15] MEDS ORDERED: Oxymetazoline 0.05% Nasal Relief Spray 15mL BTL PRN (17:45)
--- NOTE | 2024-04-15 18:27 | NUR ---
THIS NURSE WAS CALLED TO PT ROOM BY ALETA ONEIL D/T PT CAME OUT OF ROOM STATING HIS HAD A NOSE BLEED AND IT WOULDNT STOP. THIS NURSE ARRIVED TO PT ROOM AT 1715 PT NOTED TO BE SITTING ON EDGE OF BED WITH BLOOD NOTED TO BE COMING OUT OF PT RIGHT NARE. THIS NURSE APPLIED PRESSURE AND HAD PT LEAN FORWARD FOR 15MIN WITH NO EFFECTIVNESS TO BLEED. PT NOTED TO HAVE SPIT OUT A BLOOD CLOT APPROXAMATELY 6IN LONG AND 1IN WIDE THIS NURSE CALLED EMILY CHARGE NURSE WHOM CAME TO ROOM AND INSTRUCTED THIS NURSE TO CALL FRENCH. THIS NURSE CALLED AND LEFT MESSAGE FOR PHYSICDYLAN WHILE EMILY ONEIL HELD PRESSURE AND APPLIE ICE PACK TO PT NOSE. EMILY ONEIL CALLED AND SPOKE WITH FRENCH AT 1730. FRENCH STATED TO APPLY PRESSURE FOR 30MIN AND IF BLEEDING CONT TO THEN UTILIZE NASAL SPRAY. PRESSURE WAS RELEASED AT 1803 WITH NO BLEEDING NOTED.
[2024-04-15 20:20] VITALS: BP 139/78
[2024-04-15] MEDS ORDERED: Insulin Glargine-Yfgn 100 Unit/mL 3 ML SYR SC SCH (21:00)
--- NOTE | 2024-04-16 04:21 | NUR ---
A&Ox4, vss, medicated 1x for pain in arms and knees 12/23, pt awake most of the night moving from bed to recliner, resting in recliner now w/call light in reach, will cont to monitor until report given to oncoming nurse.
[2024-04-16 04:34] VITALS: BP 164/103
[2024-04-16 06:12] LABS: BASOPHILS ABSOLUTE AUTO 0.08 K/mm3 (0.00-0.23); BASOPHILS PERCENT AUTO 1 % (0-2); EOSINOPHILS ABSOLUTE AUTO 0.45 K/mm3 (0.00-0.68); EOSINOPHILS PERCENT AUTO 5 % (0-6); Hematocrit 33.9 % (33.0-51.0); Hemoglobin 10.5 g/dL (11.5-16.0); IMMATURE GRAN ABSOLUTE AUTO 0.41 K/mm3 (0.00-0.10); IMMATURE GRAN PERCENT AUTO 4 % (0-1); LYMPHOCYTES ABSOLUTE AUTO 2.41 K/mm3 (0.84-5.20); LYMPHOCYTES PERCENT AUTO 24 % (21-46); MONOCYTES ABSOLUTE AUTO 0.79 K/mm3 (0.16-1.47); MONOCYTES PERCENT AUTO 8 % (4-13); Mean Corpuscular HGB 26.6 pg (26.0-34.0); Mean Corpuscular Volume 86 fL (80-100); Mean Platelet Volume 10.8 fL (9.1-12.4); NEUTROPHILS PERCENT AUTO 59 % (41-73); Platelet Count 207 K/mm3 (150-400); RDW Coefficient Variation 14.3 % (11.7-14.2); RDW Standard Deviation 44.7 fL (35.1-46.3); Red Blood Cell Count 3.94 M/mm3 (3.80-5.20); White Blood Cell Count 10.04 K/mm3 (4.00-11.30)
[2024-04-16 06:21] LABS: Albumin, Blood 2.7 g/dL (3.4-5.0); Albumin/Globulin Ratio 0.7 (0.8-1.8); Bilirubin, Total 0.5 mg/dL (0.1-1.0); Bun/Creatinine Ratio 9.5 (12.0-20.0); Calcium, Blood 8.7 mg/dL (8.5-10.1); Creatinine, Blood 1.37 mg/dL (0.40-1.00); Potassium, Blood 4.7 mmol/L (3.5-5.5); Total Protein, Blood 6.7 g/dL (6.4-8.2)
[2024-04-16 07:49] VITALS: BP 182/86
[2024-04-16] MEDS ORDERED: NORETHINDRONE PO SCH (08:00)
[2024-04-16] MEDS ORDERED: ESTRADIOL PO SCH (08:00)
[2024-04-16] MEDS ORDERED: Famotidine 20 MG Tab PO SCH (09:00)
[2024-04-16] MEDS ORDERED: Bumetanide 1 MG Tab PO SCH (09:00)
[2024-04-16] MEDS ORDERED: Misc. Tablet PO SCH (09:00)
[2024-04-16] MEDS ORDERED: Cefdinir 300 MG Cap PO SCH (12:00)
[2024-04-16 15:52] VITALS: BP 151/80
--- NOTE | 2024-04-16 18:47 | NUR ---
SHIFT SUMMARY PT CONT LEVEL OF CARE WITH NO ACUTE CHANGES NOTED. PLAN IS FOR PT TO DC TO SNF AWAITING ACCEPTANCE FROM [facility]. PT NOTED TO BE ASSIST X1 WITH FWW TO COMMODE AND CHAIR.
[2024-04-16 19:40] VITALS: BP 140/73
[2024-04-17 02:45] VITALS: BP 141/83
--- NOTE | 2024-04-17 04:08 | NUR ---
A&Ox4, VSS, pt expressed frustration w/frequesnt urination and wanting to use purwick device, educated pt on need for ambulation and risk for UTI with urinary diversion devices, pain meds admin x1 for c/o BL arm & BL knee pain, pt slept in recliner w/ in for night assisting to bsc; sleeping at this time w/call light in reach, will cont to monitor until report given to oncoming nurse.
[2024-04-17 07:37] VITALS: BP 153/87
[2024-04-17] MEDS ORDERED: CEFD300 PO (11:28)
[2024-04-17] MEDS ORDERED: Saline Nasal Spray 45 ML PRN (11:35)
[2024-04-17 11:44] LABS: CORONAVIRUS COVID-19 AG Negative (NEGATIVE)
--- NOTE | 2024-04-17 15:56 | NUR ---
PATIENT DC'D TO [facility], REPORTS CALLED TO BIPIN. BELONGINGS SENT WITH PATIENT. DC PACKET AND HARD SCRIPT FOR TRAMADOL SENT WITH WATER VESSEL CAPTAIN. PATIENT DENIES ANY FURTHER QUESTIONS OR CONCERNS.
== END 2024-04-17 15:43 | DRG 690 ==
LOC: ER 03:48 → MEDS 11:23
PROVIDERS: Family Medicine; Internal Medicine; Student in an Organized Health Care Education/Training Program; ADMIT Family Medicine
DX: N39.0 Urinary tract infection, site not specified (principal); N17.9 Acute kidney failure, unspecified; E87.21 Acute metabolic acidosis; Z68.44 Body mass index [BMI] 60.0-69.9, adult; N18.32 Chronic kidney disease, stage 3b; E11.22 Type 2 diabetes mellitus with diabetic chronic kidney disease; I12.9 Hypertensive chronic kidney disease with stage 1 through stage 4 chronic kidney disease, or unspecified chronic kidney disease; K21.9 Gastro-esophageal reflux disease without esophagitis; B96.1 Klebsiella pneumoniae [K. pneumoniae] as the cause of diseases classified elsewhere; E86.0 Dehydration; E66.01 Morbid (severe) obesity due to excess calories; Z79.899 Other long term (current) drug therapy
CPT/HCPCS: 36415; 51701; 74177; 80048; 80053; 81001; 82947; 83605; 83690; 83735; 84100; 85025; 86140; 87040; 87426-QW; 96365-59; 96366; 96372; 97110; 97162; 99285-25; A9270; G0378; J0696; J1650; J1815; J7030; Q9967

== ENCOUNTER 2024-04-27 05:00 | Emergency (ER) | payer OTHER ==
[~2024-04-27] VITALS: Ht 162.6 cm; Wt 186.0 kg
[~2024-04-27 05:00] MED LIST changes: +CEFD300 PO; +FAMO10 PO
[2024-04-27] MEDS ORDERED: Oxymetazoline 0.05% Nasal Relief Spray 15mL BTL ONE (06:50)
[2024-04-27] MEDS ORDERED: Silver Nitr/Potassium Nitrate 1 EA APPL TOP ONE (06:50)
[2024-04-27] MEDS ORDERED: AFRIN15 M6 (07:14)
[2024-04-27 08:26] VITALS: BP 152/78
== END 2024-04-27 08:46 | disposition home or self-care (01) ==
LOC: ER 05:00
DX: R04.0 Epistaxis (principal); K21.9 Gastro-esophageal reflux disease without esophagitis; I12.9 Hypertensive chronic kidney disease with stage 1 through stage 4 chronic kidney disease, or unspecified chronic kidney disease; N18.30 Chronic kidney disease, stage 3 unspecified; E11.22 Type 2 diabetes mellitus with diabetic chronic kidney disease; E78.5 Hyperlipidemia, unspecified; G47.33 Obstructive sleep apnea (adult) (pediatric); Z79.899 Other long term (current) drug therapy; Z79.82 Long term (current) use of aspirin; Z79.84 Long term (current) use of oral hypoglycemic drugs; Z79.4 Long term (current) use of insulin; Z88.1 Allergy status to other antibiotic agents; Z88.8 Allergy status to other drugs, medicaments and biological substances
CPT/HCPCS: 30901; 99283-25; A9270

== ENCOUNTER 2024-04-27 11:16 | Emergency (ER) | payer OTHER ==
[~2024-04-27] VITALS: Ht 162.6 cm; Wt 136.1 kg
[~2024-04-27 11:16] MED LIST changes: +AFRIN15 M6
[2024-04-27 11:26] VITALS: BP 149/88
== END 2024-04-27 14:00 | disposition home or self-care (01) ==
LOC: ER 11:16
DX: R04.0 Epistaxis (principal); E11.22 Type 2 diabetes mellitus with diabetic chronic kidney disease; N18.32 Chronic kidney disease, stage 3b; E78.5 Hyperlipidemia, unspecified; K21.9 Gastro-esophageal reflux disease without esophagitis; I12.9 Hypertensive chronic kidney disease with stage 1 through stage 4 chronic kidney disease, or unspecified chronic kidney disease; Z79.82 Long term (current) use of aspirin; Z79.84 Long term (current) use of oral hypoglycemic drugs; Z79.899 Other long term (current) drug therapy; Z79.4 Long term (current) use of insulin; Z88.8 Allergy status to other drugs, medicaments and biological substances
CPT/HCPCS: 99283

== ENCOUNTER 2024-05-11 01:23 | Emergency (ER) | payer OTHER ==
[~2024-05-11] VITALS: Ht 157.5 cm; Wt 136.1 kg
[2024-05-11 02:12] LABS: Albumin, Blood 3.1 g/dL (3.4-5.0); Albumin/Globulin Ratio 0.6 (0.8-1.8); Bilirubin, Total 0.4 mg/dL (0.1-1.0); Bun/Creatinine Ratio 15.6 (12.0-20.0); Calcium, Blood 9.8 mg/dL (8.5-10.1); Creatinine, Blood 1.22 mg/dL (0.40-1.00); Globulin, Blood 5.2 g/dL (2.2-4.0); Potassium, Blood 4.2 mmol/L (3.5-5.5); Total Protein, Blood 8.3 g/dL (6.4-8.2)
[2024-05-11 02:17] LABS: BASOPHILS ABSOLUTE AUTO 0.09 K/mm3 (0.00-0.23); BASOPHILS PERCENT AUTO 1 % (0-2); EOSINOPHILS ABSOLUTE AUTO 0.51 K/mm3 (0.00-0.68); EOSINOPHILS PERCENT AUTO 4 % (0-6); Hematocrit 36.6 % (33.0-51.0); Hemoglobin 11.5 g/dL (11.5-16.0); IMMATURE GRAN ABSOLUTE AUTO 0.22 K/mm3 (0.00-0.10); IMMATURE GRAN PERCENT AUTO 2 % (0-1); LYMPHOCYTES ABSOLUTE AUTO 2.95 K/mm3 (0.84-5.20); LYMPHOCYTES PERCENT AUTO 22 % (21-46); MONOCYTES ABSOLUTE AUTO 0.75 K/mm3 (0.16-1.47); MONOCYTES PERCENT AUTO 6 % (4-13); Mean Corpuscular HGB 25.5 pg (26.0-34.0); Mean Corpuscular HGB Conc 31.4 g/dL (31.5-36.5); Mean Corpuscular Volume 81 fL (80-100); Mean Platelet Volume 11.1 fL (9.1-12.4); NEUTROPHILS ABSOLUTE AUTO 8.94 K/mm3 (1.96-9.15); NEUTROPHILS PERCENT AUTO 66 % (41-73); Platelet Count 287 K/mm3 (150-400); RDW Coefficient Variation 14.6 % (11.7-14.2); Red Blood Cell Count 4.51 M/mm3 (3.80-5.20); White Blood Cell Count 13.46 K/mm3 (4.00-11.30)
[2024-05-11] MEDS ORDERED: Ketorolac Tromethamine 30mg Vial IV ONE (02:35)
[2024-05-11] MEDS ORDERED: Ondansetron HCl 2 MG / ML 2ML Vial IV ONE (02:35)
[2024-05-11 04:00] LABS: Source, Urine Clean Catch
[2024-05-11 04:18] LABS: Bilirubin, Urine Neg (Neg); Blood, Urine 1+ (Neg); Glucose Qualitative, Urine 3+ (Neg); Ketones, Urine 1+ (Neg); Leukocyte Esterase, Urine Neg (Neg); Nitrite, Urine Pos (Neg); Protein, Urine 4+ (Neg); Specific Gravity, Urine 1.025 (1.003-1.022); Urobilinogen, Urine NORM (Normal)
[2024-05-11 04:30] LABS: Appearance, Urine Hazy (Clear); Color, Urine Yellow (P-Yellow)
[2024-05-11 04:32] LABS: Bacteria Many /hpf; Squamous Epithelial Cells Mod /hpf (Few)
[2024-05-11] MEDS ORDERED: DiphenhydrAMINE HCl 50 MG/ML 1ML Vial IV ONE (04:50)
[2024-05-11] MEDS ORDERED: CefTRIAXone Sodium 1,000 MG in NS 50 ML IV ONE (05:25)
[2024-05-11] MEDS ORDERED: Diflucan100 MG PO (06:41)
[2024-05-11] MEDS ORDERED: CEFD300 PO (06:41)
[2024-05-11 08:15] VITALS: BP 148/71
== END 2024-05-11 08:41 | disposition home or self-care (01) ==
LOC: ER 01:23
PROVIDERS: Student in an Organized Health Care Education/Training Program
DX: N39.0 Urinary tract infection, site not specified (principal); B37.2 Candidiasis of skin and nail; D72.829 Elevated white blood cell count, unspecified; I12.9 Hypertensive chronic kidney disease with stage 1 through stage 4 chronic kidney disease, or unspecified chronic kidney disease; N18.32 Chronic kidney disease, stage 3b; E11.22 Type 2 diabetes mellitus with diabetic chronic kidney disease; E78.5 Hyperlipidemia, unspecified; K21.9 Gastro-esophageal reflux disease without esophagitis; Z79.84 Long term (current) use of oral hypoglycemic drugs; Z79.899 Other long term (current) drug therapy; Z79.4 Long term (current) use of insulin; Z88.8 Allergy status to other drugs, medicaments and biological substances
CPT/HCPCS: 74177; 80053; 81001; 83690; 85025; 87077; 87086; 87186; 96365; 96375; 99284-25; J0696; J1200; J1885; J2405; Q9967

== ENCOUNTER 2024-07-26 10:08 | Emergency (ER) | payer OTHER ==
[~2024-07-26] VITALS: Ht 162.6 cm; Wt 186.0 kg
[~2024-07-26 10:08] MED LIST changes: +Diflucan100 MG PO
[2024-07-26 10:16] VITALS: BP 156/100
[2024-07-26 10:52] LABS: Source, Urine Straight Cath
[2024-07-26] MEDS ORDERED: Ondansetron HCl 2 MG / ML 2ML Vial IV ONE (10:55)
[2024-07-26 11:03] LABS: Appearance, Urine Clear (Clear); Bilirubin, Urine Neg (Neg); Blood, Urine 3+ (Neg); Color, Urine Yellow (P-Yellow); Glucose Qualitative, Urine Neg (Neg); Ketones, Urine Neg (Neg); Leukocyte Esterase, Urine Neg (Neg); Nitrite, Urine Neg (Neg); Protein, Urine 4+ (Neg); Urobilinogen, Urine NORM (Normal)
[2024-07-26 11:32] LABS: Hyaline Casts 0-2 /lpf (0-2)
[2024-07-26 11:36] LABS: White Blood Cells, Urine 0-2 /hpf (0-5)
[2024-07-26 11:39] LABS: Squamous Epithelial Cells Mod /hpf (Few)
[2024-07-26 11:41] LABS: Bacteria Rare /hpf
[2024-07-26 11:43] LABS: Amorphous Light (0-Heavy); Mucus Mod (0-Heavy); Renal Epithelial Few /hpf (0-Rare)
[2024-07-26 12:00] LABS: BASOPHILS ABSOLUTE AUTO 0.11 K/mm3 (0.00-0.23); BASOPHILS PERCENT AUTO 1 % (0-2); EOSINOPHILS ABSOLUTE AUTO 0.46 K/mm3 (0.00-0.68); EOSINOPHILS PERCENT AUTO 3 % (0-6); Hematocrit 35.4 % (33.0-51.0); Hemoglobin 11.3 g/dL (11.5-16.0); IMMATURE GRAN ABSOLUTE AUTO 0.52 K/mm3 (0.00-0.10); IMMATURE GRAN PERCENT AUTO 3 % (0-1); LYMPHOCYTES ABSOLUTE AUTO 3.47 K/mm3 (0.84-5.20); LYMPHOCYTES PERCENT AUTO 19 % (21-46); MONOCYTES ABSOLUTE AUTO 1.05 K/mm3 (0.16-1.47); MONOCYTES PERCENT AUTO 6 % (4-13); Mean Corpuscular HGB 25.2 pg (26.0-34.0); Mean Corpuscular HGB Conc 31.9 g/dL (31.5-36.5); Mean Corpuscular Volume 79 fL (80-100); Mean Platelet Volume 10.3 fL (9.1-12.4); NEUTROPHILS ABSOLUTE AUTO 13.16 K/mm3 (1.96-9.15); NEUTROPHILS PERCENT AUTO 70 % (41-73); Platelet Count 256 K/mm3 (150-400); RDW Coefficient Variation 17.4 % (11.7-14.2); RDW Standard Deviation 50.1 fL (35.1-46.3); Red Blood Cell Count 4.48 M/mm3 (3.80-5.20); White Blood Cell Count 18.77 K/mm3 (4.00-11.30)
[2024-07-26 12:33] LABS: Albumin/Globulin Ratio 0.6 (0.8-1.8); Bilirubin, Total 0.3 mg/dL (0.1-1.0); Bun/Creatinine Ratio 30.5 (12.0-20.0); Calcium, Blood 8.7 mg/dL (8.5-10.1); Creatinine, Blood 1.28 mg/dL (0.40-1.00); Globulin, Blood 4.9 g/dL (2.2-4.0); Potassium, Blood 4.4 mmol/L (3.5-5.5); Total Protein, Blood 7.9 g/dL (6.4-8.2)
[2024-07-26] MEDS ORDERED: Diflucan150 MG PO (14:25)
== END 2024-07-26 17:52 | disposition home or self-care (01) ==
LOC: ER 10:08
PROVIDERS: Student in an Organized Health Care Education/Training Program
DX: R10.32 Left lower quadrant pain (principal); D72.829 Elevated white blood cell count, unspecified; B37.2 Candidiasis of skin and nail
CPT/HCPCS: 74177; 80053; 81001; 83690; 85025; 96374-59; 99284-25; J2405; Q9967

== ENCOUNTER 2024-09-28 07:20 | Inpatient (IN) | payer OTHER ==
[~2024-09-28] VITALS: Ht 162.6 cm; Wt 200.0 kg
[~2024-09-28 07:20] MED LIST changes: -FAMO10 PO
[2024-09-28 10:24] LABS: BASOPHILS ABSOLUTE AUTO 0.06 K/mm3 (0.00-0.23); BASOPHILS PERCENT AUTO 1 % (0-2); EOSINOPHILS ABSOLUTE AUTO 0.37 K/mm3 (0.00-0.68); EOSINOPHILS PERCENT AUTO 3 % (0-6); Hematocrit 39.5 % (33.0-51.0); Hemoglobin 12.2 g/dL (11.5-16.0); IMMATURE GRAN ABSOLUTE AUTO 0.31 K/mm3 (0.00-0.10); IMMATURE GRAN PERCENT AUTO 3 % (0-1); LYMPHOCYTES ABSOLUTE AUTO 2.85 K/mm3 (0.84-5.20); LYMPHOCYTES PERCENT AUTO 25 % (21-46); MONOCYTES ABSOLUTE AUTO 0.72 K/mm3 (0.16-1.47); MONOCYTES PERCENT AUTO 6 % (4-13); Mean Corpuscular HGB 25.9 pg (26.0-34.0); Mean Corpuscular HGB Conc 30.9 g/dL (31.5-36.5); Mean Corpuscular Volume 84 fL (80-100); Mean Platelet Volume 11.2 fL (9.1-12.4); NEUTROPHILS ABSOLUTE AUTO 7.34 K/mm3 (1.96-9.15); NEUTROPHILS PERCENT AUTO 63 % (41-73); Platelet Count 274 K/mm3 (150-400); RDW Coefficient Variation 14.6 % (11.7-14.2); RDW Standard Deviation 44.4 fL (35.1-46.3); Red Blood Cell Count 4.71 M/mm3 (3.80-5.20); White Blood Cell Count 11.65 K/mm3 (4.00-11.30)
[2024-09-28 10:39] LABS: Source, Urine Clean Catch
[2024-09-28 10:43] LABS: Appearance, Urine Turbid (Clear); Bilirubin, Urine Neg (Neg); Blood, Urine 5+ (Neg); Color, Urine Yellow (P-Yellow); Glucose Qualitative, Urine 4+ (Neg); Ketones, Urine Neg (Neg); Leukocyte Esterase, Urine 2+ (Neg); Nitrite, Urine Pos (Neg); Protein, Urine 3+ (Neg); Specific Gravity, Urine 1.015 (1.003-1.022); Urobilinogen, Urine NORM (Normal)
[2024-09-28 10:45] LABS: Albumin, Blood 3.4 g/dL (3.4-5.0); Albumin/Globulin Ratio 0.7 (0.8-1.8); Bilirubin, Total 0.3 mg/dL (0.1-1.0); Bun/Creatinine Ratio 17.6 (12.0-20.0); Calcium, Blood 9.7 mg/dL (8.5-10.1); Creatinine, Blood 1.59 mg/dL (0.40-1.00); Globulin, Blood 4.8 g/dL (2.2-4.0); Potassium, Blood 4.9 mmol/L (3.5-5.5); Total Protein, Blood 8.2 g/dL (6.4-8.2)
[2024-09-28 10:52] LABS: Bacteria Mod /hpf; Red Blood Cells, Urine 50-100 /hpf (0-2); Squamous Epithelial Cells Mod /hpf (Few); White Blood Cells, Urine 25-50 /hpf (0-5)
[2024-09-28] MEDS ORDERED: NS 1,000 ML IV SCH ×2 (10:55→15:00)
[2024-09-28] MEDS ORDERED: Piperacillin/Tazobactam Sod 4.5 GM in NS 100 ML IV ONE (11:00)
[2024-09-28] MEDS ORDERED: NITR100CA PO (11:51)
[2024-09-28] MEDS ORDERED: Percocet 10-321 EACH PO (11:52)
[2024-09-28] MEDS ORDERED: Ondansetron HCl 2 MG / ML 2ML Vial IV PRN (14:20)
[2024-09-28] MEDS ORDERED: OxyCODONE 10/Acetamin 325 TABLET PO PRN (14:30)
[2024-09-28] MEDS ORDERED: Ascorbic Acid 500 MG Tab PO SCH (14:30)
[2024-09-28] MEDS ORDERED: Meropenem 1,000 MG in NS 100 ML IV SCH (14:36)
[2024-09-28 16:48] VITALS: BP 131/85
[2024-09-28] MEDS ORDERED: Insulin Human Lispro 100 Units/ML 3ML Syringe SC SCH (17:30)
[2024-09-28] MEDS ORDERED: DULoxetine HCL 60 MG Capsule DR PO SCH (18:00)
--- NOTE | 2024-09-28 18:33 | NUR ---
ADMISSION NOTE: PATIENT ARRIVES TO ROOM VIA GURNEY AT 1625 FROM ER FOR DX'S OF SEVERE SEPSIS. PATIENT TRANSFERRED TO BED c 1 ASSIST. PATIENT ORIENTATED TO ROOM AND CALL SYSTEM. PATIENT ADMISSION, MEDRIC AND SKIN ASSESSMENT c 2 RN'S VERIFIED COMPLETED. PATIENT REPORTS URGENCY NO ABLE TO MAKE TO BATHROOM ON TIME PUREWICK IN PLACED. PATIENT HAS PIV TO R FOREARM INFUSING NS AT 125 MLS/HR. PATIENT BLOOD SUGAR 277 BEFORE DINNER, RECEIVED INSULIN COVERAGE PER EMAR. 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 BED IN LOWEST POSITION. CALL LIGHT IN REACH.
[2024-09-28 19:13] VITALS: BP 147/86
[2024-09-28] MEDS ORDERED: Atorvastatin 10 MG Tab PO SCH (21:00)
[2024-09-28] MEDS ORDERED: Insulin Glargine-Yfgn 100 Unit/mL 3 ML SYR SC SCH (21:00)
[2024-09-28] MEDS ORDERED: Gabapentin 400 MG Cap PO SCH (21:00)
[2024-09-28] MEDS ORDERED: Famotidine 20 MG Tab PO SCH (21:00)
[2024-09-28] MEDS ORDERED: Lactobacil 2-S.Thermo-Bifido 1 1 Cap PO SCH (21:00)
[2024-09-28] MEDS ORDERED: Trospium Chloride 20 MG Tab PO SCH (21:00)
[2024-09-29 04:12] VITALS: BP 151/80
--- NOTE | 2024-09-29 05:37 | NUR ---
SHIFT SUMMARY PT SLEPT INTERMITTENTLY DURING THE NIGHT. MEDICATED FOR PAIN X1 WITH OXY PER EMAR. CONTINOUS IVF AND IV ANTIBIOTICS INFUSING PER ORDER. PT TURNS WITH ASSISTANCE, PUREWICK IN PLACE FOR C/O URGENCY AND INABILITY TO GET TO BSC IN TIME. BED IN LOWEST POSITION, CALL LIGHT WITHIN REACH, SIDERAILS UP X2.
[2024-09-29] MEDS ORDERED: Omeprazole 20 MG CapCR PO SCH (06:00)
[2024-09-29 07:48] VITALS: BP 163/91
[2024-09-29] MEDS ORDERED: Multivitamins 1 Tab PO SCH (09:00)
[2024-09-29] MEDS ORDERED: Enoxaparin 40 MG/0.4 ML SYR SC SCH (09:00)
[2024-09-29] MEDS ORDERED: Cholecalciferol 1000 Unit Tablet (=25MCG) PO SCH (09:00)
[2024-09-29] MEDS ORDERED: Losartan Potassium 50 MG Tab PO SCH (09:00)
[2024-09-29] MEDS ORDERED: Biotin 5 MG Cap PO SCH (09:00)
[2024-09-29] MEDS ORDERED: Aspirin 81 MG Chew PO SCH (09:00)
[2024-09-29] MEDS ORDERED: Misc. Tablet PO SCH (09:00)
[2024-09-29] MEDS ORDERED: NORETHINDRONE PO SCH (09:00)
[2024-09-29] MEDS ORDERED: ESTRADIOL PO SCH (09:00)
[2024-09-29] MEDS ORDERED: Metoclopramide HCl 5MG / ML 2ML Vial IV PRN (09:25)
[2024-09-29] MEDS ORDERED: Miconazole Nitrate 2% 85 GM PWD TOP SCH (13:55)
[2024-09-29 15:36] VITALS: BP 150/98
--- NOTE | 2024-09-29 17:48 | NUR ---
A&Ox4,FULL CODE, CONTACT ISO, AT BEDISIDE MOST OF THE DAY, IV ANTIBIOTICS PER EMAR, PUREWIC IN PLACE, NAUSEA MORNING/EARLY AFTERNOON & DIDNT EAT MUCH, HELD INSULIN, ABLE TO TURN IN BED, SLEPT ON/OFF ALL DAY, WILL CALL FOR ASSISTANCE WHEN NEEDED
--- NOTE | 2024-09-29 18:13 | NUR ---
REVIEWED CHARTING ENTERED BY DIOR GARCIA AND I AGREE WITH HER DOCUMENTATION FOR THIS PATIENT.
[2024-09-29 19:27] VITALS: BP 149/99
[2024-09-29] MEDS ORDERED: SEMAGLUTIDE 14 MG PO SCH (21:00)
[2024-09-30 03:09] VITALS: BP 132/77
[2024-09-30 06:26] LABS: Hematocrit 36.4 % (33.0-51.0); Hemoglobin 11.2 g/dL (11.5-16.0); Mean Corpuscular HGB 25.6 pg (26.0-34.0); Mean Corpuscular HGB Conc 30.8 g/dL (31.5-36.5); Mean Corpuscular Volume 83 fL (80-100); Mean Platelet Volume 10.6 fL (9.1-12.4); Platelet Count 253 K/mm3 (150-400); RDW Coefficient Variation 14.6 % (11.7-14.2); RDW Standard Deviation 43.7 fL (35.1-46.3); Red Blood Cell Count 4.38 M/mm3 (3.80-5.20); White Blood Cell Count 12.13 K/mm3 (4.00-11.30)
--- NOTE | 2024-09-30 06:41 | NUR ---
SHIFT SUMMARY: PT IS A&OX4, PLEASANT AND COOPERATIVE WITH CARE. VSS ON RA. AT BEDSIDE T/O THIS SHIFT. C/O 8/10 PAIN TO HER RIGHT KNEE AND FORD, MEDICATED PER EMAR. TOLERATING A CONS CARB DIET, GOOD APPETITE. WICKING SYSTEM IN PLACE DRAINING ADEQUATE AMOUNTS OF CONCENTRATED URINE. PUREWICK WAS LEAKING, SO THIS RN REMOVED. PT GETTING UP TO BSC X1 ASSIST WITH FWW. NO BM THIS SHIFT. BED IN LOWEST POSITION, CALL LIGHT WITHIN REACH. CONTACT PRECAUTIONS MAINTAINED.
[2024-09-30 06:57] LABS: Bun/Creatinine Ratio 15.9 (12.0-20.0); Creatinine, Blood 1.38 mg/dL (0.40-1.00); Potassium, Blood 4.2 mmol/L (3.5-5.5)
[2024-09-30 07:18] VITALS: BP 147/83
[2024-09-30] MEDS ORDERED: Allopurinol 100 MG Tab PO SCH (09:00)
[2024-09-30] MEDS ORDERED: Calcitriol 0.25 MCG Cap PO SCH (09:00)
[2024-09-30] MEDS ORDERED: NS 250 ML IV PRN (09:00)
[2024-09-30] MEDS ORDERED: Calcium 500 MG/Vit D 200 Units Tab PO SCH (09:00)
[2024-09-30 15:12] VITALS: BP 149/85
--- NOTE | 2024-09-30 16:31 | NUR ---
A&Ox4, FULL CODE, AT BEDSIDE MOST OF THE DAY & HELPS WITH CARE, USES BEDSIDE COMODE WITH 1 PERSON ASSIST & WALKER, IV ANTIBIOTIC ADMINSTERED PER EMAR, PT AWAKE MORE TODAY, GAVE INSULIN ACHS, HAS MEPLEX ON RIGHT LEG IN PLACE, REDNESS IN FOLDS & PUT NYSTAIN ON, CONTINUES TO HAVE SMALL AMOUNT OF URINE, USES CALL LIGHT APPROPRIATELY
[2024-09-30] MEDS ORDERED: SEMAGLUTIDE 14 MG PO SCH (18:00)
[2024-09-30 19:36] VITALS: BP 109/72
[2024-10-01 04:16] VITALS: BP 128/87
--- NOTE | 2024-10-01 04:31 | NUR ---
SHIFT SUMMARY PATIENT IS ALERT AND ORIENTED. PATIENT HAS HAD NO ACUTE EVENTS THIS SHIFT. VITAL SIGNS REVIEWED. PATIENT HAS COMPLAINED OF PAIN IN LEGS THIS SHIFT AND MEDICATED PER EMAR. PATIENT HAS HAD NO COMPLAINTS OF SOB, NAUSEA OR VOMITTING THIS SHIFT. PATIENT HAS HAD ONE LARGE BM THIS SHIFT. ABX INFUSED ORDERED. BED IN LOCKED AND LOWEST POSITION. CALL LIGHT IN PLACE.
[2024-10-01 06:22] LABS: Hematocrit 35.6 % (33.0-51.0); Mean Corpuscular HGB 25.3 pg (26.0-34.0); Mean Corpuscular HGB Conc 30.9 g/dL (31.5-36.5); Mean Corpuscular Volume 82 fL (80-100); Mean Platelet Volume 10.8 fL (9.1-12.4); Platelet Count 239 K/mm3 (150-400); RDW Coefficient Variation 14.6 % (11.7-14.2); RDW Standard Deviation 43.2 fL (35.1-46.3); Red Blood Cell Count 4.34 M/mm3 (3.80-5.20); White Blood Cell Count 10.49 K/mm3 (4.00-11.30)
[2024-10-01 06:45] LABS: Bun/Creatinine Ratio 15.5 (12.0-20.0); Calcium, Blood 9.1 mg/dL (8.5-10.1); Creatinine, Blood 1.42 mg/dL (0.40-1.00); Potassium, Blood 4.4 mmol/L (3.5-5.5)
[2024-10-01 07:41] VITALS: BP 129/81
[2024-10-01] MEDS ORDERED: CefTRIAXone Sodium 1,000 MG in NS 100 ML IV SCH (09:00)
[2024-10-01] MEDS ORDERED: SPIRONOLACTONE25 MG PO (10:54)
[2024-10-01] MEDS ORDERED: AMOCLA875 PO (13:55)
[2024-10-01] MEDS ORDERED: MICONAZOLE NIT130 GM TOP (14:00)
[2024-10-01] MEDS ORDERED: FAMO10 PO (14:36)
[2024-10-01 14:54] VITALS: BP 115/65
[2024-10-01 19:20] VITALS: BP 131/70
[2024-10-02 02:14] VITALS: BP 134/77
--- NOTE | 2024-10-02 05:55 | NUR ---
SHIFT SUMMARY; PATIENT SLEPT IN LONG INTERVALS, UP TO BSC X 2. MEDICATED FOR PAIN.
[2024-10-02 07:24] VITALS: BP 141/80
[2024-10-02 14:44] VITALS: BP 133/72
[2024-10-02] MEDS ORDERED: Amoxicillin/Clavulanate K 875 MG Tab PO SCH (17:00)
--- NOTE | 2024-10-02 19:52 | NUR ---
PT PENDING TRANSFER TO SNF FOR REHAB. PENDING INSURANCE APPROVAL. PT 1-2 ASST TO BSC. HUSB AT BEDSIDE MUCH OF DAY. DID REQUEST LOWER INSULIN FOR SHAHZAD MEAL. DR ORTEGA. NO OTHER CONCERNS NOTED. BED INL OW POSITION, CALL LITE IN REACH CALLS APPROP
[2024-10-02 20:28] VITALS: BP 157/87
[2024-10-02] MEDS ORDERED: Insulin Glargine-Yfgn 100 Unit/mL 3 ML SYR SC SCH (21:00)
[2024-10-03 02:55] VITALS: BP 167/100
[2024-10-03 07:43] VITALS: BP 149/81
--- NOTE | 2024-10-03 08:14 | NUR ---
SHIFT SUMMARY; PATIENT SLEPT IN LONG INTRVALS. MED FOR PAIN JUST ONCE.
--- NOTE | 2024-10-03 10:56 | NUR ---
DISCHARGE NOTE MS LONDON IS TRANSFERING TO [facility] FOR REHAB. TRANSPORT HERE AT 1057HRS, TRANSPORTED VIA WHEELCHAIR. ATTEMPTED TO GIVE REPORT TO RECIEVING NURSE AT [facility] X2, MESSAGE LEFT FOR THEM TO CALL ME BACK. PT STOOD WITH WALKER/1 ASSIST TO BSC AND W/C THIS MORNING. NO QUESTIONS OR CONCERNS PRIOR TO TRANSFER.
--- NOTE | 2024-10-03 11:21 | NUR ---
REPORT TO JUDY AT [facility].
== END 2024-10-03 11:29 | DRG 872 ==
LOC: ER 07:20 → MEDS 14:15 → ENPENDDIS 10-02 16:35 → MEDS 10-03 11:29
PROVIDERS: Emergency Medicine; ADMIT Internal Medicine
DX: A41.59 Other Gram-negative sepsis (principal); N39.0 Urinary tract infection, site not specified; Z68.45 Body mass index [BMI] 70 or greater, adult; I12.9 Hypertensive chronic kidney disease with stage 1 through stage 4 chronic kidney disease, or unspecified chronic kidney disease; R65.20 Severe sepsis without septic shock; N18.32 Chronic kidney disease, stage 3b; E66.01 Morbid (severe) obesity due to excess calories; E11.22 Type 2 diabetes mellitus with diabetic chronic kidney disease; E78.5 Hyperlipidemia, unspecified; K21.9 Gastro-esophageal reflux disease without esophagitis; B96.4 Proteus (mirabilis) (morganii) as the cause of diseases classified elsewhere; E88.819 Insulin resistance, unspecified; E28.2 Polycystic ovarian syndrome; R31.9 Hematuria, unspecified; Z72.0 Tobacco use; Z88.8 Allergy status to other drugs, medicaments and biological substances; Z79.4 Long term (current) use of insulin; Z79.82 Long term (current) use of aspirin; Z79.84 Long term (current) use of oral hypoglycemic drugs; Z79.891 Long term (current) use of opiate analgesic; Z79.899 Other long term (current) drug therapy; Z98.890 Other specified postprocedural states
CPT/HCPCS: 36415; 74176; 80048; 80053; 81001; 82947; 83605; 85025; 85027; 87040; 87077; 87086; 87186; 96365; 97110; 97110-CQ; 97162; 97530; 97530-CQ; 99285-25; A6590; A9270; J0696; J1650; J1815; J2185; J2405; J2543; J7030; J7050

== ENCOUNTER 2024-12-03 12:34 | Inpatient (IN) | payer OTHER ==
[~2024-12-03] VITALS: Ht 162.6 cm; Wt 192.8 kg
[~2024-12-03 12:34] MED LIST changes: +AMOCLA875 PO; +CALCIUM 600-VI1 EAC7 PO; -Calcium + Vita1 EACH PO; +FAMO10 PO; +MICONAZOLE NIT130 GM TOP; +NITR100CA PO; +Percocet 10-321 EACH PO; +SPIRONOLACTONE25 MG PO
[2024-12-03 14:07] LABS: Source, Urine Clean Catch
[2024-12-03 14:13] LABS: Bilirubin, Urine Neg (Neg); Color, Urine Yellow (P-Yellow); Glucose Qualitative, Urine Neg (Neg); Ketones, Urine Neg (Neg); Leukocyte Esterase, Urine 1+ (Neg); Protein, Urine 2+ (Neg); Specific Gravity, Urine 1.010 (1.003-1.022); Urobilinogen, Urine NORM (Normal)
[2024-12-03 14:22] LABS: Red Blood Cells, Urine 0-2 /hpf (0-2)
[2024-12-03 14:27] LABS: BASOPHILS ABSOLUTE AUTO 0.07 K/mm3 (0.00-0.23); BASOPHILS PERCENT AUTO 1 % (0-2); EOSINOPHILS ABSOLUTE AUTO 1.02 K/mm3 (0.00-0.68); EOSINOPHILS PERCENT AUTO 7 % (0-6); Hematocrit 35.0 % (33.0-51.0); Hemoglobin 10.9 g/dL (11.5-16.0); IMMATURE GRAN ABSOLUTE AUTO 0.33 K/mm3 (0.00-0.10); IMMATURE GRAN PERCENT AUTO 2 % (0-1); LYMPHOCYTES ABSOLUTE AUTO 2.59 K/mm3 (0.84-5.20); LYMPHOCYTES PERCENT AUTO 18 % (21-46); MONOCYTES ABSOLUTE AUTO 1.03 K/mm3 (0.16-1.47); MONOCYTES PERCENT AUTO 7 % (4-13); Mean Corpuscular HGB Conc 31.1 g/dL (31.5-36.5); Mean Corpuscular Volume 82 fL (80-100); NEUTROPHILS ABSOLUTE AUTO 9.76 K/mm3 (1.96-9.15); NEUTROPHILS PERCENT AUTO 66 % (41-73); NRBC ABSOLUTE 0.00 K/mm3 (0.00-0.02); NRBC Auto 0.0 /100 WBC (0.0-0.2); Platelet Count 243 K/mm3 (150-400); RDW Coefficient Variation 15.9 % (11.7-14.2); RDW Standard Deviation 46.7 fL (35.1-46.3)
[2024-12-03 15:13] LABS: Alanine Aminotransfer (ALT/SGP 26.0 U/L (12-78); Albumin, Blood 3.1 g/dL (3.4-5.0); Albumin/Globulin Ratio 0.7 (0.8-1.8); Anion Gap 10.0 mmol/L (3-11); Aspartate Aminotrans (AST/SGOT 22.0 U/L (12-37); Bilirubin, Total 0.3 mg/dL (0.1-1.0); Blood Urea Nitrogen 41.0 mg/dL (8-24); CO2, Blood 31.0 mmol/L (21-32); Calcium, Blood 10.1 mg/dL (8.5-10.1); Chloride, Blood 97.0 mmol/L (98-108); Creatinine, Blood 1.92 mg/dL (0.40-1.00); Globulin, Blood 4.7 g/dL (2.2-4.0); Glucose, Blood 232.0 mg/dL (70-99); Potassium, Blood 4.2 mmol/L (3.5-5.5); Sodium, Blood 134.0 mmol/L (136-145); Total Protein, Blood 7.8 g/dL (6.4-8.2)
[2024-12-03] MEDS ORDERED: CefTRIAXone Sodium 1,000 MG in NS 100 ML IV ONE (15:50)
[2024-12-03] MEDS ORDERED: OxyCODONE 10/Acetamin 325 TABLET PO PRN (17:00)
[2024-12-03] MEDS ORDERED: DULoxetine HCL 60 MG Capsule DR PO SCH (18:00)
[2024-12-03] MEDS ORDERED: Miconazole Nitrate 2% Talc Free PWD 71GM TOP SCH (21:00)
[2024-12-03] MEDS ORDERED: Lactobacil 2-S.Thermo-Bifido 1 1 Cap PO SCH (21:00)
[2024-12-03] MEDS ORDERED: Insulin Glargine-Yfgn 100 Unit/mL 3 ML SYR SC SCH (21:00)
[2024-12-03] MEDS ORDERED: Miconazole Nitrate 2% 85 GM PWD TOP SCH (21:00)
[2024-12-03 21:22] VITALS: BP 129/77
--- NOTE | 2024-12-04 00:31 | NUR ---
ADMIT NOTE PT IS A 59 YOF. DX OF SEPSIS/UTI. A&OX4. HX OF MORBID OBESITY, FREQUENT UTIS, DM2, CKD3, HTN, AND GERD. PT ON RA, NO C/O OF CHEST PAIN OR DISCOMFORT. PUREWICK IN PLACE W/ SUCTION, DRAINING CLEAR, YELLOW URINE. 22G IV IN R UPPER ARM/ARMPIT. WOUND PRESENT ON ADMISSION. SEE CHART PICTURES AND ASSESSMENTS FOR DETAILS. MD NOTIFIED. MEDS GIVEN PER EMAR. PT TRANSFERRED TO BARIATRIC BED VIA CEILING LIFT. REMAINS ON BEDREST PER ORDERS. SCDS REFUSED. PT ORIENTED TO ROOM, CALL LIGHT, AND SAFETY PRECAUTIONS. BED RAILS UP X 2, BED IN LOWEST POSITION, BED WHEELS LOCKED, PERSONAL BELONGINGS AND CALL LIGHT WITHIN REACH.
[2024-12-04 03:04] VITALS: BP 127/75
[2024-12-04 05:32] LABS: Anion Gap 8.0 mmol/L (3-11); Blood Urea Nitrogen 37.0 mg/dL (8-24); CO2, Blood 32.0 mmol/L (21-32); Calcium, Blood 9.5 mg/dL (8.5-10.1); Chloride, Blood 100.0 mmol/L (98-108); Creatinine, Blood 1.82 mg/dL (0.40-1.00); Glucose, Blood 205.0 mg/dL (70-99); Potassium, Blood 4.3 mmol/L (3.5-5.5); Sodium, Blood 136.0 mmol/L (136-145)
--- NOTE | 2024-12-04 05:34 | NUR ---
PT IS A&OX4, VSS. PT ADMITTED THIS SHIFT W/ DX OF SEPSIS/UTI. PT COMPLIANT WITH MEDICATIONS AND ASSESSMENTS. MEDICATIONS GIVEN BY BREAK RN. PT HAS BEEN SLEEPING FOR MOST OF THE SHIFT. CHEST RISE/RESPIRATIONS NOTED. PUREWICK IN PLACE, DRAINING W/ SUCTION. PT C/O KNEE AND SHOULDER PAIN. PAIN MEDICATION GIVEN IN ED PER EMAR. DISTRACTION W/ TV HAS BEEN EFFECTIVE WITH NO NEED FOR PHARMACOLOGICAL PAIN MANAGEMENT THIS SHIFT. STAGE II WOUND PRESENT ON ADMISSION. MEPILEX DRESSING APPLIED AND REMAINS CDI. SEE PHOTOS IN CHART FOR MORE DETAILS. BED RAILS UP X 2, BED IN LOWEST POSITION, BED WHEELS LOCKED, PERSONAL BELONGINGS AND CALL LIGHT WITHIN REACH FOR SAFETY.
[2024-12-04 05:37] LABS: Hematocrit 33.7 % (33.0-51.0); Hemoglobin 10.5 g/dL (11.5-16.0); Mean Corpuscular HGB Conc 31.2 g/dL (31.5-36.5); Mean Corpuscular Volume 82 fL (80-100); NRBC ABSOLUTE 0.00 K/mm3 (0.00-0.02); NRBC Auto 0.0 /100 WBC (0.0-0.2); Platelet Count 227 K/mm3 (150-400); RDW Coefficient Variation 15.8 % (11.7-14.2); RDW Standard Deviation 46.6 fL (35.1-46.3)
[2024-12-04 07:27] VITALS: BP 138/89
[2024-12-04] MEDS ORDERED: Insulin Human Lispro 100 Units/ML 3ML Syringe SC SCH (08:30)
[2024-12-04] MEDS ORDERED: NS 250 ML IV PRN (08:50)
[2024-12-04] MEDS ORDERED: Cholecalciferol 1000 Unit Tablet (=25MCG) PO SCH (09:00)
[2024-12-04] MEDS ORDERED: Multivitamins 1 Tab PO SCH (09:00)
[2024-12-04] MEDS ORDERED: ESTRADIOL PO SCH (09:00)
[2024-12-04] MEDS ORDERED: CefTRIAXone Sodium 1,000 MG in NS 100 ML IV SCH (09:00)
[2024-12-04] MEDS ORDERED: NORETHINDRONE PO SCH (09:00)
[2024-12-04] MEDS ORDERED: Enoxaparin 40 MG/0.4 ML SYR SC SCH (09:00)
[2024-12-04] MEDS ORDERED: Darbepoetin (Pharmacy Consult) SC SCH (11:55)
--- NOTE | 2024-12-04 15:39 | NUR ---
The patient is lying in bed and comes in and out of resting while her spouse, Jose, speaks about their concerns about the SNF and how he is looking into what he felt like was a poor choice. He also talks about the long medical history of the patient and the many struggle they have endured because of the those medical issues. He shares about their [employer] and the minerva they used to have in going to latter-day, but because of the patient's lack of mobility they have not gone to any latter-day for awhile. I provided therapeutic listening and prayer. The patient and Jose responded well to the prayer and asked me to return to visit again sometime.
[2024-12-04 15:47] VITALS: BP 154/86
--- NOTE | 2024-12-04 17:50 | NUR ---
SHIFT SUMMARY PATIENT A/OX4, ABLE TO MAKE NEEDS KNOWN. PLEASANT AND COOPERATIVE WITH CARE. PHYSICAL THERAPY ORDERED THIS SHIFT. RENAL ULTRASOUND OBTAINED. DR. MCNAIR CONSULTED. PUREWICK IN PLACE. PATIENT'S SPOUSE, CINDI, AT BEDSIDE THROUGHOUT SHIFT. HOME MEDICATION SENT OT PHARMACY AND APPROVED FOR ADMINISTRATION, IN PATIENT'S DRAWER. MEPLIEX TO BUTTOCK REMAINS INTACT. IV ABX INFUSED PER MAR. NO OTHER CONCERNS AT THIS TIME, WILL CONTINUE TO MONITOR.
[2024-12-04 19:20] VITALS: BP 148/96
[2024-12-05 02:57] VITALS: BP 151/82
[2024-12-05 05:16] LABS: Hematocrit 33.2 % (33.0-51.0); Hemoglobin 10.3 g/dL (11.5-16.0); Mean Corpuscular HGB Conc 31.0 g/dL (31.5-36.5); Mean Corpuscular Volume 82 fL (80-100); NRBC ABSOLUTE 0.00 K/mm3 (0.00-0.02); NRBC Auto 0.0 /100 WBC (0.0-0.2); Platelet Count 237 K/mm3 (150-400); RDW Coefficient Variation 15.8 % (11.7-14.2); RDW Standard Deviation 47.1 fL (35.1-46.3)
[2024-12-05 05:36] LABS: Albumin, Blood 2.8 g/dL (3.4-5.0); Anion Gap 8 mmol/L (3-11); Blood Urea Nitrogen 35 mg/dL (8-24); CO2, Blood 33 mmol/L (21-32); Calcium, Blood 9.6 mg/dL (8.5-10.1); Chloride, Blood 99 mmol/L (98-108); Creatinine, Blood 1.80 mg/dL (0.40-1.00); Glucose, Blood 175 mg/dL (70-99); Magnesium, Blood 1.6 mg/dL (1.6-2.4); Phosphorus, Blood 5.2 mg/dL (2.5-4.9); Potassium, Blood 4.2 mmol/L (3.5-5.5); Sodium, Blood 136 mmol/L (136-145)
--- NOTE | 2024-12-05 06:15 | NUR ---
SHIFT SUMMARY PT A&Ox4, VSS ON RA. NO ACUTE CHANGES OVERNIGHT. PT DENIES PAIN, NAUSEA, SOB. PUREWICK IN PLACE. PT ON BEDREST, OVERHEAD LIFT USED FOR REPOSITIONING. SAFETY PRECAUTIONS IN PLACE, CALL LIGHT IN REACH, NO FURTHER NEEDS AT THIS TIME.
[2024-12-05 07:38] VITALS: BP 159/92
[2024-12-05] MEDS ORDERED: Calcium/Vit D 600 mg-400 Unit Tab PO SCH (09:00)
[2024-12-05 15:40] VITALS: BP 135/86
--- NOTE | 2024-12-05 16:43 | NUR ---
PAtient is lying in bed and alert. Her spouse, Jose is bedside. They tell me about Jose's many acts of kindness to friends and total starngers, about his excellent care of the patient and about his unique and loving connections to Ember's family menbers. They share about their marcelina and the hope and strength that they have because of it. I provided therapeutic listening and prayer. THey both responded well and showed signs of being encouraged in their marcelina.
--- NOTE | 2024-12-05 17:29 | NUR ---
SHIFT SUMMARY PATIENT A/OX4, ABLE TO MAKE NEEDS KNOWN. PLEASANT AND COOPERATIVE WITH STAFF. PATIENT COMPLAINING OF BILATERAL KNEE PAIN AND LEFT SHOULDER PAIN THIS MORNING, MEDICATED WITH PRN PERCOCET PER JUL. LATER IN THE EVENING COMPLAINING OF PAIN TO BILATERAL KNEES. DR. SUGGS NOTIFIED OF PATIENT REQUESTING PRN TYLENOL FOR BREAK THROUGH PAIN, ADMINISTERED PER JUL. PATIENT S SPOUSE, CINDI, AT BEDSIDE THROUGHOUT THE SHIFT. IV ABX INFUSED PER JUL. PATIENT ABLE TO GET UP IN RECLINER VIA LIFT, ONCE IN RECLINER PATIENT ONE PERSON ASSIST WITH WALKER. PARTICIPATED IN PHYSICAL THERAPY THIS MORNING. NO OTHER CONCERNS AT THIS TIME, WILL CONTINUE TO MONITOR.
[2024-12-05 19:16] VITALS: BP 127/72
--- NOTE | 2024-12-05 21:16 | NUR ---
GOT A CALL FROM THE LAB THAT PTS BLOOD CULTURE SHOWED GRAM+ COCCI IN [place]UST[place]. CALLED MD AND INFORMED HIM OF THIS AND HE STATED THAT HE WILL LOOK AND THE PTS CHART WHEN HE GETS A CHANCE AND PUT IN NEW ORDERS FOR THE PT
[2024-12-06 03:38] VITALS: BP 139/80
--- NOTE | 2024-12-06 05:26 | NUR ---
SHIFT SUMMARY PT A&Ox4, VSS ON RA. PROVIDER CONTACTED FOR CRITICAL LAB, GRAM POS COCCI IN CLUSTERS IN 1 BLOOD CULTURE, NO NEW ORDERS RECEIVED AT THIS TIME. PT TRANSFERRED FROM CHAIR TO BED VIA CEILING LIFT, PUREWICK IN PLACE OVERNIGHT. NO ACUTE CHANGES THIS SHIFT. CALL LIGHT IN REACH, NO FURTHER NEEDS AT THIS TIME.
[2024-12-06 06:40] LABS: Hematocrit 34.1 % (33.0-51.0); Hemoglobin 10.9 g/dL (11.5-16.0)
[2024-12-06 07:09] LABS: Albumin, Blood 2.8 g/dL (3.4-5.0); Anion Gap 10 mmol/L (3-11); Blood Urea Nitrogen 30 mg/dL (8-24); CO2, Blood 28 mmol/L (21-32); Calcium, Blood 9.3 mg/dL (8.5-10.1); Chloride, Blood 100 mmol/L (98-108); Creatinine, Blood 1.74 mg/dL (0.40-1.00); Glucose, Blood 173 mg/dL (70-99); Magnesium, Blood 1.4 mg/dL (1.6-2.4); Phosphorus, Blood 4.4 mg/dL (2.5-4.9); Potassium, Blood 4.2 mmol/L (3.5-5.5); Sodium, Blood 134 mmol/L (136-145)
[2024-12-06 07:16] VITALS: BP 178/76
[2024-12-06] MEDS ORDERED: Mag Sulfate 1 GM/D5% 100ML 100 ML IV STA (08:08)
[2024-12-06] MEDS ORDERED: AMOCLA875 PO (13:27)
--- NOTE | 2024-12-06 17:26 | NUR ---
PT WAS DISCHARGED UNDER MD ORDERS. ALL PIVS REMOVED FROM PT. D/C PACKET IN HAND, PT HAS NO QUESTIONS OR CONCERNS AT THIS TIME
== END 2024-12-06 17:22 | disposition home health service (06) | DRG 872 ==
LOC: ER 12:34 → MEDS 16:51
PROVIDERS: Emergency Medicine; Internal Medicine Nephrology; ADMIT Internal Medicine
DX: A41.9 Sepsis, unspecified organism (principal); N39.0 Urinary tract infection, site not specified; N17.9 Acute kidney failure, unspecified; E87.1 Hypo-osmolality and hyponatremia; Z68.45 Body mass index [BMI] 70 or greater, adult; E78.5 Hyperlipidemia, unspecified; N18.32 Chronic kidney disease, stage 3b; D63.1 Anemia in chronic kidney disease; K21.9 Gastro-esophageal reflux disease without esophagitis; E11.22 Type 2 diabetes mellitus with diabetic chronic kidney disease; F32.A Depression, unspecified; E66.01 Morbid (severe) obesity due to excess calories; B96.4 Proteus (mirabilis) (morganii) as the cause of diseases classified elsewhere; I12.9 Hypertensive chronic kidney disease with stage 1 through stage 4 chronic kidney disease, or unspecified chronic kidney disease; Z79.899 Other long term (current) drug therapy; Z88.8 Allergy status to other drugs, medicaments and biological substances; Z79.82 Long term (current) use of aspirin
CPT/HCPCS: 36415; 76770; 80048; 80053; 80069; 81001; 82947; 83605; 83735; 85014; 85018; 85025; 85027; 87040; 87077; 87086; 87186; 97110; 97112; 97161; 97530; 99284; A9270; J0696; J1650; J1815; J3475

== ENCOUNTER 2024-12-07 16:19 | Emergency (ER) | payer OTHER ==
[~2024-12-07] VITALS: Ht 162.6 cm; Wt 192.3 kg
[2024-12-07 16:26] VITALS: BP 145/73
== END 2024-12-07 18:45 | disposition home or self-care (01) ==
LOC: ER 16:19
DX: R53.1 Weakness (principal); E66.9 Obesity, unspecified; E11.9 Type 2 diabetes mellitus without complications; I10 Essential (primary) hypertension; Z68.45 Body mass index [BMI] 70 or greater, adult; Z88.6 Allergy status to analgesic agent; Z88.8 Allergy status to other drugs, medicaments and biological substances; Z79.4 Long term (current) use of insulin; Z79.82 Long term (current) use of aspirin; Z79.85 Long-term (current) use of injectable non-insulin antidiabetic drugs; Z79.899 Other long term (current) drug therapy; Z59.89 Other problems related to housing and economic circumstances
CPT/HCPCS: 99283

== ENCOUNTER → 2024-12-12 | Outpatient (CLI) | payer OTHER | LOC: LAB 15:57 → LAB SHORT 15:57 | DX: N39.0 Urinary tract infection, site not specified (principal) | CPT/HCPCS: 87086 ==

== ENCOUNTER 2024-12-24 00:22 | Emergency (ER) | payer OTHER ==
[~2024-12-24] VITALS: Ht 162.6 cm; Wt 192.3 kg
[2024-12-24 00:28] VITALS: BP 170/91
[2024-12-24 01:22] LABS: BASOPHILS ABSOLUTE AUTO 0.06 K/mm3 (0.00-0.23); BASOPHILS PERCENT AUTO 1 % (0-2); EOSINOPHILS ABSOLUTE AUTO 0.59 K/mm3 (0.00-0.68); EOSINOPHILS PERCENT AUTO 5 % (0-6); Hematocrit 39.4 % (33.0-51.0); Hemoglobin 12.0 g/dL (11.5-16.0); IMMATURE GRAN ABSOLUTE AUTO 0.12 K/mm3 (0.00-0.10); IMMATURE GRAN PERCENT AUTO 1 % (0-1); LYMPHOCYTES ABSOLUTE AUTO 2.79 K/mm3 (0.84-5.20); LYMPHOCYTES PERCENT AUTO 25 % (21-46); MONOCYTES ABSOLUTE AUTO 1.04 K/mm3 (0.16-1.47); MONOCYTES PERCENT AUTO 9 % (4-13); Mean Corpuscular HGB Conc 30.5 g/dL (31.5-36.5); Mean Corpuscular Volume 81 fL (80-100); NEUTROPHILS ABSOLUTE AUTO 6.44 K/mm3 (1.96-9.15); NEUTROPHILS PERCENT AUTO 58 % (41-73); NRBC ABSOLUTE 0.00 K/mm3 (0.00-0.02); NRBC Auto 0.0 /100 WBC (0.0-0.2); Platelet Count 320 K/mm3 (150-400); RDW Coefficient Variation 15.6 % (11.7-14.2); RDW Standard Deviation 45.9 fL (35.1-46.3)
[2024-12-24 01:41] LABS: Alanine Aminotransfer (ALT/SGP 44.0 U/L (12-78); Albumin, Blood 2.9 g/dL (3.4-5.0); Albumin/Globulin Ratio 0.6 (0.8-1.8); Anion Gap 9.0 mmol/L (3-11); Aspartate Aminotrans (AST/SGOT 41.0 U/L (12-37); Bilirubin, Total 0.4 mg/dL (0.1-1.0); Blood Urea Nitrogen 17.0 mg/dL (8-24); CO2, Blood 28.0 mmol/L (21-32); Calcium, Blood 9.5 mg/dL (8.5-10.1); Chloride, Blood 105.0 mmol/L (98-108); Creatinine, Blood 1.36 mg/dL (0.40-1.00); Globulin, Blood 5.0 g/dL (2.2-4.0); Glucose, Blood 143.0 mg/dL (70-99); Magnesium, Blood 1.4 mg/dL (1.6-2.4); Potassium, Blood 4.3 mmol/L (3.5-5.5); Sodium, Blood 138.0 mmol/L (136-145); Total Protein, Blood 7.9 g/dL (6.4-8.2)
[2024-12-24 03:07] LABS: Source, Urine Clean Catch
[2024-12-24 03:10] LABS: Bilirubin, Urine Neg (Neg); Glucose Qualitative, Urine Neg (Neg); Ketones, Urine Neg (Neg); Leukocyte Esterase, Urine Neg (Neg); Protein, Urine 4+ (Neg); Specific Gravity, Urine 1.025 (1.003-1.022); Urobilinogen, Urine NORM (Normal)
[2024-12-24 03:19] LABS: Color, Urine Yellow (P-Yellow); Red Blood Cells, Urine 0-2 /hpf (0-2); White Blood Cells, Urine 0-2 /hpf (0-5)
== END 2024-12-24 08:16 | disposition home or self-care (01) ==
LOC: ER 00:22
PROVIDERS: Student in an Organized Health Care Education/Training Program
DX: R10.32 Left lower quadrant pain (principal); L29.9 Pruritus, unspecified; I12.9 Hypertensive chronic kidney disease with stage 1 through stage 4 chronic kidney disease, or unspecified chronic kidney disease; E11.22 Type 2 diabetes mellitus with diabetic chronic kidney disease; N18.32 Chronic kidney disease, stage 3b; E78.5 Hyperlipidemia, unspecified; K21.9 Gastro-esophageal reflux disease without esophagitis; E66.01 Morbid (severe) obesity due to excess calories; Z68.45 Body mass index [BMI] 70 or greater, adult; Z88.8 Allergy status to other drugs, medicaments and biological substances; Z79.4 Long term (current) use of insulin; Z79.82 Long term (current) use of aspirin; Z79.899 Other long term (current) drug therapy
CPT/HCPCS: 80053; 81001; 83690; 83735; 85025; A9270

== ENCOUNTER 2025-01-28 18:57 | Emergency (ER) | payer OTHER ==
[~2025-01-28] VITALS: Ht 162.6 cm; Wt 191.0 kg
[2025-01-28 20:35] LABS: BASOPHILS ABSOLUTE AUTO 0.02 K/mm3 (0.00-0.23); BASOPHILS PERCENT AUTO 0 % (0-2); EOSINOPHILS ABSOLUTE AUTO 0.04 K/mm3 (0.00-0.68); EOSINOPHILS PERCENT AUTO 0 % (0-6); Hematocrit 38.4 % (33.0-51.0); Hemoglobin 11.9 g/dL (11.5-16.0); IMMATURE GRAN ABSOLUTE AUTO 0.23 K/mm3 (0.00-0.10); IMMATURE GRAN PERCENT AUTO 2 % (0-1); LYMPHOCYTES ABSOLUTE AUTO 2.81 K/mm3 (0.84-5.20); LYMPHOCYTES PERCENT AUTO 20 % (21-46); MONOCYTES ABSOLUTE AUTO 1.40 K/mm3 (0.16-1.47); MONOCYTES PERCENT AUTO 10 % (4-13); Mean Corpuscular HGB Conc 31.0 g/dL (31.5-36.5); Mean Corpuscular Volume 78 fL (80-100); NEUTROPHILS ABSOLUTE AUTO 9.93 K/mm3 (1.96-9.15); NEUTROPHILS PERCENT AUTO 69 % (41-73); NRBC ABSOLUTE 0.00 K/mm3 (0.00-0.02); NRBC Auto 0.0 /100 WBC (0.0-0.2); Platelet Count 286 K/mm3 (150-400); RDW Coefficient Variation 14.9 % (11.7-14.2); RDW Standard Deviation 41.7 fL (35.1-46.3)
[2025-01-28 21:00] LABS: Alanine Aminotransfer (ALT/SGP 24.0 U/L (12-78); Albumin, Blood 3.2 g/dL (3.4-5.0); Albumin/Globulin Ratio 0.7 (0.8-1.8); Anion Gap 7.0 mmol/L (3-11); Aspartate Aminotrans (AST/SGOT 21.0 U/L (12-37); Bilirubin, Total 0.4 mg/dL (0.1-1.0); Blood Urea Nitrogen 36.0 mg/dL (8-24); CO2, Blood 30.0 mmol/L (21-32); Calcium, Blood 9.0 mg/dL (8.5-10.1); Chloride, Blood 99.0 mmol/L (98-108); Creatinine, Blood 1.43 mg/dL (0.40-1.00); Globulin, Blood 4.8 g/dL (2.2-4.0); Glucose, Blood 205.0 mg/dL (70-99); Potassium, Blood 4.3 mmol/L (3.5-5.5); Sodium, Blood 132.0 mmol/L (136-145); Total Protein, Blood 8.0 g/dL (6.4-8.2)
[2025-01-28 22:18] LABS: Source, Urine Clean Catch
[2025-01-28 22:20] LABS: Bilirubin, Urine Neg (Neg); Glucose Qualitative, Urine Neg (Neg); Ketones, Urine Neg (Neg); Leukocyte Esterase, Urine Neg (Neg); Protein, Urine 4+ (Neg); Specific Gravity, Urine 1.015 (1.003-1.022); Urobilinogen, Urine NORM (Normal)
[2025-01-28 22:24] LABS: Color, Urine Yellow (P-Yellow)
[2025-01-28 22:27] LABS: Red Blood Cells, Urine Not Seen /hpf (0-2); White Blood Cells, Urine Not Seen /hpf (0-5)
[2025-01-29] MEDS ORDERED: MIRALAX17 GM PO (04:34)
[2025-01-29] MEDS ORDERED: DOCU100 PO (04:34)
[2025-01-29] MEDS ORDERED: Polyethylene Glycol 3350 17 gm PO ONE (04:35)
[2025-01-29 05:30] VITALS: BP 154/74
== END 2025-01-29 05:30 | disposition home or self-care (01) ==
LOC: ER 18:57
PROVIDERS: Physician Assistant
DX: K59.00 Constipation, unspecified (principal); E86.0 Dehydration; I12.9 Hypertensive chronic kidney disease with stage 1 through stage 4 chronic kidney disease, or unspecified chronic kidney disease; E11.22 Type 2 diabetes mellitus with diabetic chronic kidney disease; N18.32 Chronic kidney disease, stage 3b; E78.5 Hyperlipidemia, unspecified; K21.9 Gastro-esophageal reflux disease without esophagitis; Z88.8 Allergy status to other drugs, medicaments and biological substances; Z79.4 Long term (current) use of insulin; Z79.899 Other long term (current) drug therapy; Z79.82 Long term (current) use of aspirin
CPT/HCPCS: 80053; 81001; 85025; 99284; A6590; A9270

== ENCOUNTER 2025-04-06 21:52 | Emergency (ER) | payer OTHER ==
[~2025-04-06] VITALS: Ht 165.1 cm; Wt 192.8 kg
[2025-04-06] MEDS ORDERED: Lidocaine 2% Viscous Soln 15 ML UDC PO ONE (22:05)
[2025-04-06 22:54] LABS: BASOPHILS ABSOLUTE AUTO 0.05 K/mm3 (0.00-0.23); BASOPHILS PERCENT AUTO 0 % (0-2); EOSINOPHILS ABSOLUTE AUTO 0.35 K/mm3 (0.00-0.68); EOSINOPHILS PERCENT AUTO 3 % (0-6); Hematocrit 41.1 % (33.0-51.0); Hemoglobin 12.8 g/dL (11.5-16.0); IMMATURE GRAN ABSOLUTE AUTO 0.15 K/mm3 (0.00-0.10); IMMATURE GRAN PERCENT AUTO 1 % (0-1); LYMPHOCYTES ABSOLUTE AUTO 2.52 K/mm3 (0.84-5.20); LYMPHOCYTES PERCENT AUTO 20 % (21-46); MONOCYTES ABSOLUTE AUTO 0.73 K/mm3 (0.16-1.47); MONOCYTES PERCENT AUTO 6 % (4-13); Mean Corpuscular HGB Conc 31.1 g/dL (31.5-36.5); Mean Corpuscular Volume 77 fL (80-100); NEUTROPHILS ABSOLUTE AUTO 8.99 K/mm3 (1.96-9.15); NEUTROPHILS PERCENT AUTO 70 % (41-73); NRBC ABSOLUTE 0.00 K/mm3 (0.00-0.02); NRBC Auto 0.0 /100 WBC (0.0-0.2); Platelet Count 250 K/mm3 (150-400); RDW Coefficient Variation 16.2 % (11.7-14.2); RDW Standard Deviation 45.0 fL (35.1-46.3)
[2025-04-06] MEDS ORDERED: OZEMPIC0.25 MG/02 SQ (22:56)
[2025-04-06] MEDS ORDERED: HYDHCL25 PO (22:57)
[2025-04-06 23:11] LABS: Alanine Aminotransfer (ALT/SGP 23.0 U/L (12-78); Albumin, Blood 3.0 g/dL (3.4-5.0); Albumin/Globulin Ratio 0.7 (0.8-1.8); Anion Gap 10.0 mmol/L (3-11); Aspartate Aminotrans (AST/SGOT 14.0 U/L (12-37); Bilirubin, Total 0.5 mg/dL (0.1-1.0); Blood Urea Nitrogen 19.0 mg/dL (8-24); CO2, Blood 27.0 mmol/L (21-32); Calcium, Blood 9.1 mg/dL (8.5-10.1); Chloride, Blood 103.0 mmol/L (98-108); Creatinine, Blood 1.36 mg/dL (0.40-1.00); Globulin, Blood 4.4 g/dL (2.2-4.0); Glucose, Blood 141.0 mg/dL (70-99); Potassium, Blood 4.1 mmol/L (3.5-5.5); Sodium, Blood 136.0 mmol/L (136-145); Total Protein, Blood 7.4 g/dL (6.4-8.2)
[2025-04-06] MEDS ORDERED: PANT40 PO (23:46)
[2025-04-07 01:15] VITALS: BP 167/90
== END 2025-04-07 01:30 | disposition home or self-care (01) ==
LOC: ER 21:52
PROVIDERS: Emergency Medicine
DX: R68.2 Dry mouth, unspecified (principal); D72.829 Elevated white blood cell count, unspecified; E11.22 Type 2 diabetes mellitus with diabetic chronic kidney disease; I12.9 Hypertensive chronic kidney disease with stage 1 through stage 4 chronic kidney disease, or unspecified chronic kidney disease; N18.30 Chronic kidney disease, stage 3 unspecified; K21.9 Gastro-esophageal reflux disease without esophagitis; E78.5 Hyperlipidemia, unspecified; Z88.6 Allergy status to analgesic agent; Z88.8 Allergy status to other drugs, medicaments and biological substances; Z79.4 Long term (current) use of insulin; Z79.82 Long term (current) use of aspirin; Z79.899 Other long term (current) drug therapy
CPT/HCPCS: 80053; 85025; 99284; A9270